=== PATIENT | female | born 1990 | race African-American/Black ===

== ENCOUNTER 2021-07-20 22:36 | Inpatient (IN) | payer MEDICAID, SELFPAY ==
--- NOTE | ~2021-07-20 | CT_ITS ---
EXAMINATION: CT ABDOMEN AND PELVIS WITH CONTRAST CLINICAL INFORMATION: Right lower quadrant pain. COMPARISON: None TECHNIQUE: Multidetector volumetric images were obtained from the superior aspect of the liver through the pubic symphysis following administration 85 mL of Omnipaque 350 intravenous contrast. Sagittal and coronal reformatted images were obtained on the technologist's workstation. Oral contrast: No This CT examination was performed using dose optimization techniques as appropriate, variously including the following: *Automated exposure control *Adjustment of mA and/or kV according to patient size (this includes techniques or standardized protocols for targeted exams where dose is matched to indication/reason for exam; i.e. extremities or head) *Use of iterative reconstruction technique DLP: 918 mGy-cm FINDINGS: LUNG BASES: The visualized lung bases are unremarkable. LIVER, GALLBLADDER, AND BILIARY TREE: The liver is normal in size, shape, and attenuation. No focal hepatic lesion or biliary ductal dilatation is present. Mild periportal edema. Normally distended. Gallbladder wall thickening noted. No radiopaque stone. PANCREAS: Unremarkable. SPLEEN: Unremarkable. ADRENAL GLANDS: Unremarkable. KIDNEYS AND URETERS: The kidneys are normal in size, shape, and attenuation. Mild right hydroureteronephrosis. No obstructing calculus is seen. There is a left upper pole 0.3 cm calculus which is 6 cm from the posterior axillary line. This is likely within a calyceal diverticulum. The delayed imaging shows symmetric excretion. No filling defects are seen in the collecting systems or ureters. BLADDER: Unremarkable. GASTROINTESTINAL TRACT: The small and large bowel are unremarkable. The appendix is unremarkable. ABDOMINAL WALL: No significant hernia is appreciated. LYMPH NODES: Normal. VASCULAR: Unremarkable. PELVIC VISCERA: Retroverted uterus. No adnexal mass. OSSEOUS STRUCTURES: No acute osseous abnormality. CT/CT abdomen pelvis w con IMPRESSION: 1. Gallbladder wall thickening noted. No gallstones are seen. Likely mild periportal edema. Consider ultrasound evaluation. 2. Mild right hydroureteronephrosis. No obstructing calculus is seen. Fleischner guidelines were followed.
--- NOTE | ~2021-07-20 | US_ITS ---
EXAMINATION: US ABDOMEN LIMITED CLINICAL INFORMATION: Right-sided pain. Abnormal CT .. COMPARISON: CT from today TECHNIQUE: Real-time imaging of the gallbladder and common bile duct. FINDINGS: GALLBLADDER: The gallbladder is physiologically distended without evidence of stones, sludge, polyps, or pericholecystic fluid. Gallbladder wall thickening of 0.4 cm . COMMON BILE DUCT: Normal in caliber measuring 0.2 cm in diameter. FREE FLUID: None. US/US abdomen limited IMPRESSION: Mild gallbladder wall thickening measuring 0.4 cm . No stones or other inflammatory findings.
[2021-07-20 23:18] VITALS: BP 128/83; PULSE 96; RESP 16; TEMP 36.7; O2SAT 100; BMI 23.0
[2021-07-20 23:36] LABS: Color Urine YELLOW; Glucose Urine UA NEG (NEG); Leukocyte Esterase Urine NEG (NEG); Nitrite Urine NEG (NEG); Specific Gravity - Urine >= 1.030 (1.005-1.025); Urine Blood NEG (NEG); Urine Ketones NEG (NEG); Urine Protein NEG (NEG-TRACE)
[2021-07-20 23:38] LABS: Appearance Urine CLEAR; UPreg QC Valid YES; Urine Pregnancy NEGATIVE (NEGATIVE)
--- NOTE | 2021-07-20 23:57 | ED.ABDPAIN ---
HPI - Abdominal Pain General Chief Complaint: Abdominal Pain Stated Complaint: abd pain Time Seen by Provider: 07/20/21 23:57 Source: patient Mode of arrival: ambulatory Limitations: language barrier History of Present Illness HPI narrative: Patient with no significant past medical history noticed sudden onset of lower abdominal pain more localized to right lower quadrant radiating to lower abdomen and right back denied any urinary complaints no fever no chills no nausea no vomiting pain gets worse on ambulation patient never had similar pain in the past no history of ovarian cyst Related Data Allergies Allergy/AdvReac Type Severity Reaction Status Date / Time No Known Allergies Allergy Verified 07/20/21 23:22 [No Known Allergies*] Review of Systems Review of Systems Yes all other systems are reviewed and are negative Physical Exam Vital Signs: Vital Signs: Last Vital Signs Temp 98.1 F 07/20/21 23:18 Pulse 96 07/20/21 23:18 Resp 16 07/20/21 23:18 BP 128/83 07/20/21 23:18 Pulse Ox 100 07/20/21 23:18 BMI result Body Mass Index 23.0 Appearance: Alert. Oriented X3. In moderate distress. Eyes: No pallor or icterus ENT: Pharynx normal. Oral Mucosa moist Neck: Normal inspection. Neck supple. CVS: Normal heart rate and rhythm. Pulses normal. Respiratory: No respiratory distress. Equal air entry bilateral, no wheezing/rales/rhonchi Abdomen: Soft , deep tenderness right lower quadrant no rebound tenderness or guarding Bowel sounds are present, no mass palpable, no CVA tenderness mild tenderness right upper quadrant Skin: Skin warm and dry. Normal skin color. Normal skin turgor. Extremities: No lower extremity edema. No calf tenderness Neuro: Oriented X 3. MDM - Abdominal Pain MDM Narrative Medical decision making narrative: Patient's right-sided pain mostly right lower slight right upper quadrant pain CT scan negative for kidney stone or appendicitis showed thickening of gallbladder will do ultrasound to rule out cholecystitis LFTs are normal Differential Diagnosis Differential diagnosis: Likely abdominal pain Lab Data Result diagrams: 07/21/21 00:11 07/21/21 00:11 Labs: Lab Results 07/20/21 07/20/21 07/21/21 Range/Units 23:28 23:28 00:11 WBC 13.5 H (4.8-10.8) X10*3/uL RBC 4.15 L (4.20-5.50) X10*6/uL Hgb 12.1 (12.0-16.0) g/dl Hct 37.1 (37.0-47.0) % MCV 89.4 (80.0-98.0) fL MCH 29.2 (27.0-33.0) pg MCHC 32.6 (31.0-35.0) g/dl RDW 12.9 (11.0-16.0) % Plt Count 231 (160-400) X10*3/uL MPV 11.2 (9.4-12.3) fL Immature Gran % (Auto) 0.6 H (0.0-0.4) % Neut % (Auto) 81.2 H (45-73) % Lymph % (Auto) 11.5 L (20-40) % Rankin % (Auto) 5.8 (2-11) % Eos % (Auto) 0.6 (0-4) % Baso % (Auto) 0.3 (0-2) % Lymph # (Auto) 1.6 (1.2-4.9) X10*3/uL [place] # (Auto) 0.8 (0.1-1.2) X10*3/uL Eos # (Auto) 0.1 (0.0-0.4) X10*3/uL Baso # (Auto) 0.0 (0.0-0.2) X10*3/uL Abs Immat Gran (auto) 0.08 H (0.00-0.03) X10*3/uL Absolute Neuts (auto) 11.0 H (2.0-8.3) x10*3/uL Absolute Nucleated RBC 0.000 (0.0-0.012) X10*3/uL Nucleated RBC % (auto) 0.0 (0.0-0.2) /100WBC Sodium (135-145) mmol/L Potassium (3.3-5.1) mmol/L Chloride (96-108) mmol/L Carbon Dioxide (22-29) mmol/L Anion Gap (12-20) BUN (9-16) mg/dL Creatinine (0.5-1.4) mg/dL Estim Creat Clear Calc Estimated GFR Random Glucose (60-115) mg/dL Calcium (8.4-10.2) mg/dL Total Bilirubin (0.0-1.0) mg/dL AST (5-31) U/L ALT (0-31) U/L Alkaline Phosphatase (39-117) U/L Total Protein (6.5-8.0) g/dL Albumin (3.5-5.0) g/dL Lipase (8-78) U/L Urine Color YELLOW Urine Appearance CLEAR Urine pH 6.0 (5.0-8.0) Ur Specific [place] >= 1.030 H (1.005-1.025) Urine Protein NEG (NEG-TRACE) MG/DL Urine Glucose (UA) NEG (NEG) MG/DL Urine Ketones NEG (NEG) MG/DL Urine Blood NEG (NEG) Urine Nitrite NEG (NEG) Ur Leukocyte Esterase NEG (NEG) Urine Test NEGATIVE (NEGATIVE) 07/21/21 Range/Units 00:11 WBC (4.8-10.8) X10*3/uL RBC (4.20-5.50) X10*6/uL Hgb (12.0-16.0) g/dl Hct (37.0-47.0) % MCV (80.0-98.0) fL MCH (27.0-33.0) pg MCHC (31.0-35.0) g/dl RDW (11.0-16.0) % Plt Count (160-400) X10*3/uL MPV (9.4-12.3) fL Immature Gran % (Auto) (0.0-0.4) % Neut % (Auto) (45-73) % Lymph % (Auto) (20-40) % Rankin % (Auto) (2-11) % Eos % (Auto) (0-4) % Baso % (Auto) (0-2) % Lymph # (Auto) (1.2-4.9) X10*3/uL [place] # (Auto) (0.1-1.2) X10*3/uL Eos # (Auto) (0.0-0.4) X10*3/uL Baso # (Auto) (0.0-0.2) X10*3/uL Abs Immat Gran (auto) (0.00-0.03) X10*3/uL Absolute Neuts (auto) (2.0-8.3) x10*3/uL Absolute Nucleated RBC (0.0-0.012) X10*3/uL Nucleated RBC % (auto) (0.0-0.2) /100WBC Sodium 136 (135-145) mmol/L Potassium 3.9 (3.3-5.1) mmol/L Chloride 103 (96-108) mmol/L Carbon Dioxide 25 (22-29) mmol/L Anion Gap 12 (12-20) BUN 19 H (9-16) mg/dL Creatinine 0.83 (0.5-1.4) mg/dL Estim Creat Clear Calc 81.2 Estimated GFR > 60 Random Glucose 113 (60-115) mg/dL Calcium 9.4 (8.4-10.2) mg/dL Total Bilirubin 0.4 (0.0-1.0) mg/dL AST 178 H (5-31) U/L ALT 133 H (0-31) U/L Alkaline Phosphatase 109 (39-117) U/L Total Protein 7.6 (6.5-8.0) g/dL Albumin 4.2 (3.5-5.0) g/dL Lipase 20 (8-78) U/L Urine Color Urine Appearance Urine pH (5.0-8.0) Ur Specific [place] (1.005-1.025) Urine Protein (NEG-TRACE) MG/DL Urine Glucose (UA) (NEG) MG/DL Urine Ketones (NEG) MG/DL Urine Blood (NEG) Urine Nitrite (NEG) Ur Leukocyte Esterase (NEG) Urine Test (NEGATIVE) Imaging Data CT scan - abdomen: Radiologist's impression: CT/CT abdomen pelvis w con IMPRESSION: ? 1. Gallbladder wall thickening noted. No gallstones are seen. Likely mild periportal edema. Consider ultrasound evaluation. 2. Mild right hydroureteronephrosis. No obstructing calculus is seen.? ? Fleischner guidelines were followed. Discharge Plan Discharge Clinical Impression: Abdominal pain Qualifiers: Abdominal location: right lower quadrant Qualified Code(s): R10.31 - Right lower quadrant pain PMFSH Social History Social History Advance Directives: No Patient : No
[2021-07-21] VITALS (7 sets, daily range): BP systolic 94–110; BP diastolic 57–68; PULSE 71–80; RESP 14–18; TEMP 36.3–36.9; O2SAT 97–100
[2021-07-21 00:23] LABS: MANUAL DIFF FLAG NO
[2021-07-21] MEDS: Morphine Sulfate 4 MG/ML CARTRIDGE IVPUSH (00:23)
[2021-07-21] MEDS: ondansetron HCL 4 MG/2 ML VIAL IVPUSH (00:23)
[2021-07-21] MEDS: 0.9 % Sodium Chloride 1,000 ML 999 ML IVCONT (00:23)
[2021-07-21 00:26] LABS: Basophils Percent Auto 0.3 % (0-2); Eosinophils Absolute Auto 0.1 X10*3/uL (0.0-0.4); Eosinophils Percent Auto 0.6 % (0-4); Hematocrit 37.1 % (37.0-47.0); Hemoglobin 12.1 g/dl (12.0-16.0); Imm Gran Abs Auto 0.08 X10*3/uL (0.00-0.03); Imm Gran Pct Auto 0.6 % (0.0-0.4); Lymphocytes Absolute Auto 1.6 X10*3/uL (1.2-4.9); Lymphocytes Percent Auto 11.5 % (20-40); Mean Corpuscular HGB Conc 32.6 g/dl (31.0-35.0); Mean Corpuscular Hemoglobin 29.2 pg (27.0-33.0); Mean Corpuscular Volume 89.4 fL (80.0-98.0); Mean Platelet Volume 11.2 fL (9.4-12.3); Monocytes Absolute Auto 0.8 X10*3/uL (0.1-1.2); Monocytes Percent Auto 5.8 % (2-11); Neutrophils Percent Auto 81.2 % (45-73); Platelet Count 231 X10*3/uL (160-400); Red Blood Count 4.15 X10*6/uL (4.20-5.50); Red Cell Distribution Width 12.9 % (11.0-16.0); White Blood Count 13.5 X10*3/uL (4.8-10.8)
[2021-07-21 00:58] LABS: Alanine Aminotransferase 133 U/L (0-31); Albumin Level 4.2 g/dL (3.5-5.0); Alkaline Phosphatase 109 U/L (39-117); Anion Gap 12 (12-20); Aspartate Amino Transferase 178 U/L (5-31); Bilirubin Total 0.4 mg/dL (0.0-1.0); Blood Urea Nitrogen 19 mg/dL (9-16); Calcium 9.4 mg/dL (8.4-10.2); Carbon Dioxide 25 mmol/L (22-29); Chloride 103 mmol/L (96-108); Creatinine Clr Calc Pharmacy 81.2; Estimated Glomerular Filt Rate > 60; Glucose Random 113 mg/dL (60-115); Lipase 20 U/L (8-78); Potassium 3.9 mmol/L (3.3-5.1); Sodium 136 mmol/L (135-145); Total Protein 7.6 g/dL (6.5-8.0)
[2021-07-21] MEDS: iohexoL 350 MG/ML 100 ML INFUS..BTL 85 ML IV (01:29)
[2021-07-21] MEDS: Ketorolac Tromethamine 30 MG/ML VIAL IVPUSH (02:25)
[2021-07-21] MEDS: Ketorolac Tromethamine 30 MG/ML VIAL 15 MG IVPUSH (04:05)
[2021-07-21] MEDS: Piperacillin Sodium/Tazobactam 3.375 GM in 0.9 % Sodium Chloride 50 ML IV ×4 (05:31→23:25)
[2021-07-21 05:47] LABS: COVID-19 Test Negative (Negative); IDNOW Serial# 9DD0AD1C
[2021-07-21] MEDS: Dextrose 5 % and Lactated Ring 1,000 ML 125 ML IVCONT ×2 (05:55→15:27)
[2021-07-21] MEDS: HYDROmorphone HCl 0.5 MG/0.5 ML SYRINGE IVPUSH (08:38)
--- NOTE | 2021-07-21 08:46 | MHC.CM.PN ---
pt lives alone in her apt. she reports that she is independent in her care. she works a job and drives a car. she has no svcs at home and does not use any AD c ambulation. pt does have family that live in the area and can help her if she needs it. the patient will have her mother provide transportation home at dc. pt denies the need for vna . dc plan is home no svcs. cm to cont. to follow.
--- NOTE | 2021-07-21 09:32 | PHA.MEDREC ---
Pharmacy Consult ? Medication Reconciliation Pharmacy has completed the medication reconciliation. No remarkable issues. Radha Avila RP
--- NOTE | 2021-07-21 10:03 | PM.HPGS ---
History of Present Illness History of Present Illness Date of Service: 07/23/21 Chief complaint: Acalculous cholecystitis Narrative: Rodolfo Ly is a 31 year old female admitted because of abdominal pain. She came the ED last night because of what she described as pain on the right upper quadrant, right flank as well as the right lower quadrant and eventually involving the whole abdomen. She says this was constant throughout the night. She denies any nausea or vomiting. She states that her pain has improved significantly and has minimal pain this morning. She denies having similar episodes in the past. Review of Systems Constitutional: Constitutional: Denies chills and Denies fever(s) Cardiovascular: Cardiovascular: Denies chest pain, Denies dyspnea and Denies dyspnea on exertion Respiratory: Respiratory: Denies cough, Denies dyspnea and Denies dyspnea on exertion Gastrointestinal: Gastrointestinal: Denies hematochezia and Denies change in bowel habits Genitourinary: Genitourinary: Denies hematuria Musculoskeletal: Musculoskeletal: Denies back pain and Denies limited range of motion Neurologic: Denies focal weakness and Denies convulsions Psychiatric: Psychiatric: Denies depression and Denies mood swings [facility] Social History Social History Household Members: Children Housing: Apartment Do you presently have visiting nurse or other home services: No Patient Tobacco Use Status: Never used Tobacco service: No Current occupational status: employed Meds Allergies Allergy/AdvReac Type Severity Reaction Status Date / Time No Known Allergies Allergy Verified 07/20/21 23:22 [No Known Allergies*] Active Medications: Current Medications Acetaminophen (Acetaminophen 325 Mg Tablet) 650 mg PO QID PRN PRN Reason: headache, temp > 101 Hydromorphone HCl (Hydromorphone Hcl 0.5 Mg/0.5 Ml Syringe) 0.5 mg IVPUSH Q2H PRN; Protocol PRN Reason: Pain, Severe (Pain Scale 7-10) Last Admin: 07/21/21 08:38 Dose: 0.5 mg Documented by: Dextrose/Lactated Ringer's (D5lr) 1,000 mls @ 125 mls/hr IVCONT .Q8H [facility] Last Admin: 07/21/21 05:55 Dose: 125 mls/hr Documented by: Piperacillin Sod/Tazobactam (Sod 3.375 gm/ Sodium Chloride) 50 mls @ 100 mls/hr IV Q6H [facility] Ondansetron HCl (Ondansetron Hcl 4 Mg/2 Ml Vial) 4 mg IVPUSH QID PRN PRN Reason: Nausea Oxycodone HCl (Oxycodone Hcl Immed Release 5 Mg Tablet) 5 mg PO Q6H PRN PRN Reason: Pain, Moderate (Pain Scale 4-6 Pharmacy Consult (Consult Rx Perform Med Rec) 1 each MISCELLANE ONCE PRN PRN Reason: Consult order Sodium Chloride (0.9 % Sodium Chloride Flush 3 Ml Syringe) 3 ml IVFLUSH QSHIFT [facility] Last Admin: 07/21/21 07:53 Dose: Not Given Documented by: Zolpidem Tartrate (Zolpidem Tartrate 5 Mg Tablet) 5 mg PO BEDTIME PRN PRN Reason: Insomnia Physical Exam Vital Signs: Vital Signs: Last Vital Signs Temp 98.4 F 07/21/21 03:41 Pulse 71 07/21/21 08:33 Resp 16 07/21/21 07:09 BP 98/67 07/21/21 08:33 Pulse Ox 97 07/21/21 08:33 BMI result Body Mass Index 23.0 Const: General: comfortable and no acute distress Orientation/consciousness: patient oriented x3 Neck: Neck: Yes no lymphadenopathy Resp: Auscultation: clear to auscultation bilaterally Cardio: Rhythm: regular rhythm GI: Other: Minimal tenderness on the right lower quadrant with no guarding or rebound, no Boogie sign, no significant tenderness on the right upper quadrant or right flank at this time Palpation (GI): Soft to palpation, nontender and no guarding Neuro: General: patient oriented x3 Results Results Labs: Short CBC 07/21/21 Range/Units 00:11 WBC 13.5 H (4.8-10.8) X10*3/uL Hgb 12.1 (12.0-16.0) g/dl Hct 37.1 (37.0-47.0) % Plt Count 231 (160-400) X10*3/uL BMP 07/21/21 00:11 Sodium 136 Potassium 3.9 Chloride 103 Carbon Dioxide 25 BUN 19 H Creatinine 0.83 Calcium 9.4 Liver Function 07/21/21 Range/Units 00:11 Total Bilirubin 0.4 (0.0-1.0) mg/dL AST 178 H (5-31) U/L ALT 133 H (0-31) U/L Alkaline Phosphatase 109 (39-117) U/L Albumin 4.2 (3.5-5.0) g/dL Urine 07/20/21 07/20/21 Range/Units 23:28 23:28 Urine Color YELLOW Urine Appearance CLEAR Urine pH 6.0 (5.0-8.0) Ur Specific [place] >= 1.030 H (1.005-1.025) Urine Protein NEG (NEG-TRACE) MG/DL Urine Glucose (UA) NEG (NEG) MG/DL Urine Test NEGATIVE (NEGATIVE) Abdomen CT scan report/results: report reviewed and image reviewed CT scan - pelvis: report reviewed and image reviewed Assessment and Plan (1) Abdominal pain: Qualifiers: Abdominal location: right lower quadrant Qualified Code(s): R10.31 - Right lower quadrant pain Status: Acute She presented with abdominal pain last night mostly on the right side, which has improved significantly. Current exam shows mild tenderness right lower quadrant. I have reviewed her being studies and there is some question of gallbladder wall thickening although there are no other inflammatory changes and there are no gallstones. She is therefore being admitted for possible acalculous cholecystitis. She has leukocytosis but otherwise has no fever and appears well at this time. I did explain to her the option of proceeding with laparoscopic cholecystectomy. I discussed the technique of this procedure as well as the risks, benefits, and alternatives. She has minimal pain at this time and states that she is okay with proceeding with nonoperative treatment in observation. She expressed desire to be able to be discharged as soon as possible because of [place]. I will keep her in the hospital for IV fluids and clear liquids as well as antibiotics. I will repeat her CBC tomorrow. She has a very benign and unimpressive exam at this time otherwise. Quality Stroke Does the patient have a stroke diagnosis?: No VTE Prior VTE?: No VTE Risk Level:: Surgical - low VTE Device Contraindication: N/A - Device Ordered VTE Drug Contraindication: Treatment Not Indicated Procedures Date of Service Date of Service: 07/21/21
--- NOTE | 2021-07-21 13:56 | PM.EVENT ---
Event Note Date of Service: 07/21/21 Event Note: seen on ffup rounds says she feels well denies abdl pain abd soft stable VS no fever repeat CBC tomorrow possible discharge tomorrow pt says she hopes to spend [place] day with family
--- NOTE | 2021-07-21 18:54 | PC.NURSE ---
Report given to RN by Keila ANNE. Plan for transport to floor.
[2021-07-21] MEDS: 0.9 % Sodium Chloride Flush 3 ML SYRINGE IVFLUSH (23:27)
[2021-07-22] VITALS: BP 104/61; PULSE 81; RESP 17; TEMP 36.6; O2SAT 99
[2021-07-22] MEDS: Dextrose 5 % and Lactated Ring 1,000 ML 125 ML IVCONT ×3 (00:01→12:15)
[2021-07-22 03:52] VITALS: BP 98/53; PULSE 79; RESP 17; TEMP 36.3; O2SAT 100
[2021-07-22] MEDS: Piperacillin Sodium/Tazobactam 3.375 GM in 0.9 % Sodium Chloride 50 ML IV ×2 (05:21→12:15)
[2021-07-22 07:00] LABS: MANUAL DIFF FLAG NO
[2021-07-22 07:13] LABS: Hematocrit 34.1 % (37.0-47.0); Hemoglobin 10.9 g/dl (12.0-16.0); Mean Corpuscular Hemoglobin 28.8 pg (27.0-33.0); Mean Platelet Volume 11.3 fL (9.4-12.3); Platelet Count 201 X10*3/uL (160-400); Red Blood Count 3.79 X10*6/uL (4.20-5.50); Red Cell Distribution Width 13.2 % (11.0-16.0); White Blood Count 5.4 X10*3/uL (4.8-10.8)
[2021-07-22 07:18] LABS: Basophils Percent Auto 0.7 % (0-2); Eosinophils Absolute Auto 0.3 X10*3/uL (0.0-0.4); Eosinophils Percent Auto 5.4 % (0-4); Hematocrit 34.1 % (37.0-47.0); Hemoglobin 10.9 g/dl (12.0-16.0); Imm Gran Abs Auto 0.01 X10*3/uL (0.00-0.03); Imm Gran Pct Auto 0.2 % (0.0-0.4); Lymphocytes Absolute Auto 2.1 X10*3/uL (1.2-4.9); Lymphocytes Percent Auto 38.2 % (20-40); Mean Corpuscular Hemoglobin 28.6 pg (27.0-33.0); Mean Corpuscular Volume 89.5 fL (80.0-98.0); Mean Platelet Volume 11.6 fL (9.4-12.3); Monocytes Absolute Auto 0.5 X10*3/uL (0.1-1.2); Monocytes Percent Auto 8.1 % (2-11); Neutrophils Absolute Auto 2.6 x10*3/uL (2.0-8.3); Neutrophils Percent Auto 47.4 % (45-73); Platelet Count 203 X10*3/uL (160-400); Red Blood Count 3.81 X10*6/uL (4.20-5.50); Red Cell Distribution Width 13.2 % (11.0-16.0); White Blood Count 5.5 X10*3/uL (4.8-10.8)
[2021-07-22 07:45] LABS: Alanine Aminotransferase 177 U/L (0-31); Albumin Level 3.4 g/dL (3.5-5.0); Alkaline Phosphatase 86 U/L (39-117); Anion Gap 10 (12-20); Aspartate Amino Transferase 105 U/L (5-31); Bilirubin Direct 0.4 mg/dL (0.0-0.5); Bilirubin Total 0.8 mg/dL (0.0-1.0); Blood Urea Nitrogen 6 mg/dL (9-16); Calcium 8.7 mg/dL (8.4-10.2); Carbon Dioxide 27 mmol/L (22-29); Chloride 107 mmol/L (96-108); Creatinine Clr Calc Pharmacy 82.2; Estimated Glomerular Filt Rate > 60; Glucose Random 100 mg/dL (60-115); Potassium 3.8 mmol/L (3.3-5.1); Sodium 140 mmol/L (135-145); Total Protein 6.1 g/dL (6.5-8.0)
[2021-07-22 07:55] VITALS: BP 115/69; PULSE 80; RESP 16; TEMP 36.5; O2SAT 100
--- NOTE | 2021-07-22 10:33 | PM.PNGS ---
Subjective Subjective Date of Service: 07/22/21 Interval history: Denies abdominal pain No events reported overnight Tolerating liquids Says she wants to go home Physical Exam Vital Signs: Vital Signs: Last Vital Signs Temp 97.7 F 07/22/21 07:55 Pulse 80 07/22/21 07:55 Resp 16 07/22/21 07:55 BP 115/69 07/22/21 07:55 Pulse Ox 100 07/22/21 07:55 BMI result Body Mass Index 23.0 Const: General: comfortable and no acute distress Eyes: Sclerae: sclerae normal Resp: Effort & Inspection: normal respiratory effort Cardio: Rate: regular rate GI: Other: No Boogie's sign Palpation (GI): Soft to palpation, not firm, nontender and no guarding Objective Data Active Medications Acetaminophen (Acetaminophen 325 Mg Tablet) 650 mg PO QID PRN PRN Reason: headache, temp > 101 Hydromorphone HCl (Hydromorphone Hcl 0.5 Mg/0.5 Ml Syringe) 0.5 mg IVPUSH Q2H PRN; Protocol PRN Reason: Pain, Severe (Pain Scale 7-10) Last Admin: 07/21/21 08:38 Dose: 0.5 mg Documented by: ROGER Dextrose/Lactated Ringer's (D5lr) 1,000 mls @ 125 mls/hr IVCONT .Q8H [facility] Last Admin: 07/22/21 05:53 Dose: 125 mls/hr Documented by: SARAH Piperacillin Sod/Tazobactam (Sod 3.375 gm/ Sodium Chloride) 50 mls @ 100 mls/hr IV Q6H [facility] Last Infusion: 07/22/21 05:53 Dose: 0 mls/hr Documented by: SARAH Ondansetron HCl (Ondansetron Hcl 4 Mg/2 Ml Vial) 4 mg IVPUSH QID PRN PRN Reason: Nausea Oxycodone HCl (Oxycodone Hcl Immed Release 5 Mg Tablet) 5 mg PO Q6H PRN PRN Reason: Pain, Moderate (Pain Scale 4-6 Pharmacy Consult (Consult Rx Perform Med Rec) 1 each MISCELLANE ONCE PRN PRN Reason: Consult order Sodium Chloride (0.9 % Sodium Chloride Flush 3 Ml Syringe) [facility] Last Admin: 07/22/21 08:14 Dose: Not Given Documented by: TYRA Non-Admin Reason: IV Running Zolpidem Tartrate (Zolpidem Tartrate 5 Mg Tablet) 5 mg PO BEDTIME PRN PRN Reason: Insomnia Labs CBC & Chem 7: 07/22/21 06:10 07/22/21 06:10 Labs: Laboratory Results - last 24 hr 07/22/21 07/22/21 07/22/21 06:10 06:10 06:10 MCV 90.0 89.5 MCH 28.8 28.6 MCHC 32.0 32.0 RDW 13.2 13.2 Plt Count 201 203 MPV 11.3 11.6 Immature Gran % (Auto) 0.2 Neut % (Auto) 47.4 Lymph % (Auto) 38.2 [place] % (Auto) 8.1 Eos % (Auto) 5.4 H Baso % (Auto) 0.7 Lymph # (Auto) 2.1 [place] # (Auto) 0.5 Eos # (Auto) 0.3 Baso # (Auto) 0.0 Abs Immat Gran (auto) 0.01 Absolute Neuts (auto) 2.6 Absolute Nucleated RBC 0.000 0.000 Nucleated RBC % (auto) 0.0 0.0 Anion Gap 10 L Estim Creat Clear Calc 82.2 Estimated GFR > 60 Random Glucose 100 Calcium 8.7 D Total Bilirubin 0.8 Direct Bilirubin 0.4 AST 105 H ALT 177 H Alkaline Phosphatase 86 D Total Protein 6.1 L Albumin 3.4 L Procedures Date of Service Date of Service: 07/22/21 Progress Note: A&P Assessment and plan (1) Abdominal pain: Status: Acute Assessment and Plan: Question of acalculous cholecystitis on CT scan No gallstones She has been asymptomatic since yesterday Current exam unremarkable, no tenderness Labs today - no leukocytosis mildly elevated AST ALT Patient wants to go home Okay to DC home once tolerating diet Follow-up with primary care physician Fall Risk Details Current Medications: Current Medications Acetaminophen (Acetaminophen 325 Mg Tablet) 650 mg PO QID PRN PRN Reason: headache, temp > 101 Hydromorphone HCl (Hydromorphone Hcl 0.5 Mg/0.5 Ml Syringe) 0.5 mg IVPUSH Q2H PRN; Protocol PRN Reason: Pain, Severe (Pain Scale 7-10) Last Admin: 07/21/21 08:38 Dose: 0.5 mg Documented by: Dextrose/Lactated Ringer's (D5lr) 1,000 mls @ 125 mls/hr IVCONT .Q8H [facility] Last Admin: 07/22/21 05:53 Dose: 125 mls/hr Documented by: Piperacillin Sod/Tazobactam (Sod 3.375 gm/ Sodium Chloride) 50 mls @ 100 mls/hr IV Q6H [facility] Last Infusion: 07/22/21 05:53 Dose: Infused Documented by: Ondansetron HCl (Ondansetron Hcl 4 Mg/2 Ml Vial) 4 mg IVPUSH QID PRN PRN Reason: Nausea Oxycodone HCl (Oxycodone Hcl Immed Release 5 Mg Tablet) 5 mg PO Q6H PRN PRN Reason: Pain, Moderate (Pain Scale 4-6 Pharmacy Consult (Consult Rx Perform Med Rec) 1 each MISCELLANE ONCE PRN PRN Reason: Consult order Sodium Chloride (0.9 % Sodium Chloride Flush 3 Ml Syringe) 3 ml IVFLUSH QSHIFT [facility] Last Admin: 07/22/21 08:14 Dose: Not Given Documented by: Zolpidem Tartrate (Zolpidem Tartrate 5 Mg Tablet) 5 mg PO BEDTIME PRN PRN Reason: Insomnia Time Spent With Patient Time: Total time spent is greater than 50% in coordination of care (as documented) at patient's floor/unit and/or counseling patient: Time with patient: 15 - 24 minutes Quality Stroke Does the patient have a stroke diagnosis?: No VTE Prior VTE?: No VTE Risk Level:: Surgical - low VTE Device Contraindication: N/A - Device Ordered VTE Drug Contraindication: Treatment Not Indicated
[2021-07-22 11:35] VITALS: BP 110/67; PULSE 76; RESP 16; TEMP 37; O2SAT 99
--- NOTE | 2021-07-22 11:47 | MHC.CM.PN ---
EMR REVIEWED, PER SURGICAL ANTIC PT WILL D/C HOME SELF-CARE IF TOLERATING REGULAR DIET, FAMILY FOR TRANSPORT.
[2021-07-22] MEDS: Acetaminophen 325 MG TABLET 650 MG PO (12:14)
--- NOTE | 2021-07-23 10:51 | PM.DS ---
DS: Providers Provider Date of Service: 07/22/21 Date of admission: 07/21/21 05:14 Date of discharge: 07/22/21 Primary care physician: Denita Jacksno NP Admitting clinician: Yefri Dumas Attending physician on admission: Yefri Dumas Attending physician on discharge: Yefri Dumas DS: Diagnosis Discharge Diagnosis (1) Abdominal pain: Status: Acute DS: Summary Hospital Course Hospital Course: The patient was a 31-year-old female who had an episode of abdominal pain described as mostly right side a few hours prior to admission. She came to the emergency room. Her CAT scan suggested some mild thickening of the gallbladder wall without any pericholecystic fluid or another inflammatory changes. Her imaging studies did not show any gallstones. She did have some mild leukocytosis at 13, she was admitted for possible acalculous cholecystitis. Her pain had improved significantly in the ER. Physical exam did not reveal any significant tenderness. I admitted her for IV fluids and antibiotics. I did explain to her the option of proceeding with cholecystectomy which she stated that she felt better and did not want to proceed. Her leukocytosis improved on her 1st postop day. She did not have any further abdominal pain or tenderness on examination. She tolerated regular food and was therefore discharged on 07/22/2021. Time spent discussing smoking cessation with patient: 3 to 10 minutes Status at Discharge Functional status at discharge: independent ambulation Time Spent with Patient Time attestation: Total time spent providing and/or coordinating discharge services: Discharge coordination time: Less than 30 minutes Quality: Stroke Does the patient have a stroke diagnosis?: No Physical Exam Vital Signs: Vital Signs: Last Vital Signs Temp 98.6 F 07/22/21 11:35 Pulse 76 07/22/21 11:35 Resp 16 07/22/21 11:35 BP 110/67 07/22/21 11:35 Pulse Ox 99 07/22/21 11:35 BMI result Body Mass Index 23.0 Const: General: comfortable and no acute distress Orientation/consciousness: patient oriented x3 Neck: Neck: Yes no lymphadenopathy Resp: Auscultation: clear to auscultation bilaterally Cardio: Rhythm: regular rhythm GI: Palpation (GI): Soft to palpation, nontender and no guarding Neuro: General: patient oriented x3 DS: Data Data Completed and Pending Labs on day of discharge: Chemistry 07/21/21 07/22/21 00:11 06:10 Sodium 136 140 Potassium 3.9 3.8 Carbon Dioxide 25 27 BUN 19 H 6 L D Creatinine 0.83 0.82 Calcium 9.4 8.7 D Hematology 07/21/21 07/22/21 07/22/21 00:11 06:10 06:10 WBC 13.5 H 5.4 5.5 Hgb 12.1 10.9 L 10.9 L Plt Count 231 201 203 Urinalysis 07/20/21 23:28 Urine Color YELLOW Urine Appearance CLEAR Urine pH 6.0 Ur Specific [place] >= 1.030 H Urine Protein NEG Urine Glucose (UA) NEG Urine Ketones NEG Urine Blood NEG Urine Nitrite NEG Ur Leukocyte Esterase NEG Discharge Plan Discharge Patient Disposition: Home, Self-Care Discharge Diagnosis: abdominal pain Referrals: Denita Kearns NP [Primary Care Provider] - 1 Week Discharge Orders: Discharge Order (Routine); Ordered 07/22/21 Ordered By: Yefri Dumas Activity on Discharge: As tolerated Stand Alone Forms: Patient Portal Discharge page Activity Restrictions/Additional Instructions: Diet as tolerated Follow-up with primary care physician Care Plan Goals: Monitor abdominal pain Health Concerns: Abdominal pain, question of acalculous cholecystitis Plan of Treatment: Follow-up with her care physician Diet as tolerated Assessment: Doing well and is completely asymptomatic Discharge Date/Time: 07/22/21 15:38
== END 2021-07-22 15:38 | disposition home or self-care (01) ==
LOC: HO.ED 07-21 00:39 → HO.EDOVER 07-21 05:28 → HO.S3 07-21 17:50
PROVIDERS: Surgery; Admitting Provider Surgery; Emergency Provider Internal Medicine; PCP Registered Nurse; Visit Provider Surgery
DX: K81.9 Cholecystitis, unspecified (principal); Z20.822 Contact with and (suspected) exposure to COVID-19; Z79.899 Other long term (current) drug therapy
CPT/HCPCS: 36415; 74177; 76705; 80048; 80053; 80076; 81003; 81025; 83690; 85025; 85027; 87635; 99218; 99285; J1170; J1885; J2270; J2405; J2543; Q9967

== ENCOUNTER 2021-07-23 14:15 | Emergency (ER) | payer MEDICAID, SELFPAY ==
[2021-07-23 17:56] VITALS: BP 125/84; PULSE 86; RESP 18; TEMP 36.9; O2SAT 100; BMI 22.6
== END 2021-07-24 01:57 | disposition left against medical advice (07) ==
PROVIDERS: Emergency Provider Emergency Medicine; PCP Registered Nurse
DX: R10.9 Unspecified abdominal pain (principal)
CPT/HCPCS: 99282; 99283

== ENCOUNTER 2021-07-24 10:05 | Inpatient (IN) | payer MEDICAID, SELFPAY ==
--- NOTE | ~2021-07-24 | NM_ITS ---
EXAMINATION: NUCLEAR MEDICINE HEPATOBILIARY SCAN CLINICAL INFORMATION: Possible acalculus cholecystitis. COMPARISON: Ultrasound of abdomen 07/21/2021. CT scan abdomen pelvis 07/21/2021. TECHNIQUE: 5 mCi of technetium 99m mebrofenin was injected intravenously. Images obtained over the right upper quadrant initially through 90 minutes. Ensure was then administered orally at 90 minutes. Subsequent images obtained through 60 minutes. FINDINGS: The initial part of the study demonstrates the isotope being taken up by the liver and excreted normally into the CBD with activity flowing into the bowel. There is activity flowing into the gallbladder through this portion of exam consistent with a patent cystic duct. After the administration of a ensure there is no significant emptying of the gallbladder. This can be seen with biliary dyskinesia. NM/NM hepatobiliary wo pharm IMPRESSION: 1. Normal visualization of gallbladder consistent with a patent cystic duct. 2. No emptying of the isotope from the gallbladder after oral administration of Ensure. This can be seen with biliary dyskinesia.
[2021-07-24 10:32] VITALS: BP 127/74; PULSE 87; RESP 18; TEMP 36.8; O2SAT 99; BMI 23.9
[2021-07-24] MEDS: Morphine Sulfate 4 MG/ML CARTRIDGE IVPUSH (11:51)
[2021-07-24] MEDS: 0.9 % Sodium Chloride 1,000 ML 999 ML IV (11:51)
[2021-07-24 11:53] LABS: MANUAL DIFF FLAG NO
[2021-07-24] MEDS: ondansetron HCL 4 MG/2 ML VIAL IVPUSH (11:53)
[2021-07-24 11:54] LABS: Basophils Percent Auto 0.4 % (0-2); Eosinophils Absolute Auto 0.1 X10*3/uL (0.0-0.4); Hematocrit 37.8 % (37.0-47.0); Hemoglobin 12.3 g/dl (12.0-16.0); Imm Gran Abs Auto 0.01 X10*3/uL (0.00-0.03); Imm Gran Pct Auto 0.1 % (0.0-0.4); Lymphocytes Absolute Auto 1.5 X10*3/uL (1.2-4.9); Lymphocytes Percent Auto 21.4 % (20-40); Mean Corpuscular HGB Conc 32.5 g/dl (31.0-35.0); Mean Corpuscular Hemoglobin 28.9 pg (27.0-33.0); Mean Corpuscular Volume 88.9 fL (80.0-98.0); Mean Platelet Volume 11.3 fL (9.4-12.3); Monocytes Absolute Auto 0.5 X10*3/uL (0.1-1.2); Monocytes Percent Auto 7.1 % (2-11); Neutrophils Absolute Auto 4.7 x10*3/uL (2.0-8.3); Platelet Count 226 X10*3/uL (160-400); Red Blood Count 4.25 X10*6/uL (4.20-5.50); Red Cell Distribution Width 13.1 % (11.0-16.0); White Blood Count 6.8 X10*3/uL (4.8-10.8)
--- NOTE | 2021-07-24 11:54 | ED.ABDPAIN ---
HPI - Abdominal Pain General Chief Complaint: Abdominal Pain Stated Complaint: Abdominal pain Time Seen by Provider: 07/24/21 11:12 Source: patient Mode of arrival: ambulatory Limitations: no limitations History of Present Illness HPI narrative: 31-year-old female here with reports of right upper abdominal pain with vomiting. Patient tells me she was discharged from this facility yesterday after being admitted for acalculous cholecystitis. During her admission it was recommended she have a cholecystectomy but she declined this. Since being home her pain is resumed and she has been unable to tolerate p.o. fluids due to vomiting. No fevers, chills, urinary symptoms, diarrhea or constipation. Related Data Home Medications Medication Instructions Recorded Confirmed No Known Home Meds 07/24/21 07/24/21 Allergies Allergy/AdvReac Type Severity Reaction Status Date / Time No Known Allergies Allergy Verified 07/20/21 23:22 [No Known Allergies*] Review of Systems Review of Systems Yes all other systems are reviewed and are negative Constitutional: Reports no additional constitutional complaints, Denies body ache(s), Denies chills, Denies fever(s), Denies headache(s) and Denies weakness Eyes: Reports no additional eye complaints and Denies change in vision Reports system reviewed and no additional complaints, except as documented, Denies dizziness, Denies headache(s), Denies nasal congestion, Denies nasal discharge and Denies neck pain Cardiovascular: Reports no additional cardiovascular complaints, Denies chest pain, Denies leg edema and Denies dyspnea Respiratory: Reports no additional respiratory complaints, Denies cough and Denies dyspnea Gastrointestinal: Reports no additional gastrointestinal complaints, Reports abdominal pain, Denies diarrhea, Reports nausea and Reports vomiting Genitourinary: Reports no additional female genitourinary complaints and Denies urinary incontinence Musculoskeletal: Reports no additional musculoskeletal complaints, Denies back pain, Denies arthralgias, Denies joint swelling, Denies neck pain, Denies numbness and Denies tingling Skin/Breast: Reports system reviewed and no additional complaints, except as docu and Denies rash Reports system reviewed and no additional complaints, except as documented, Denies Abnormal speech present, Denies dizziness, Denies headache(s), Denies numbness, Denies tingling and Denies weakness Physical Exam Vital Signs: Vital Signs: Last Vital Signs Temp 98.2 F 07/24/21 10:32 Pulse 78 07/24/21 12:15 Resp 18 07/24/21 12:15 BP 111/68 07/24/21 12:15 Pulse Ox 98 07/24/21 12:15 BMI result Body Mass Index 23.9 Const: General: cooperative, healthy appearing, comfortable and no acute distress Orientation/consciousness: patient oriented x3 Limitations: no limitations HENMT: Head: Yes normal to inspection Ears: hearing grossly normal bilaterally General nose exam: Normal external nose present Face and sinus: Yes normal facial exam Mouth: Normal oral and palatal mucosa present Throat: Yes posterior oropharynx normal Eyes: General: appearance normal, both eyes and all related structures Pupils: Equal, round and reactive pupils present Neck: Neck: Yes normal visual inspection Chest: Chest palpation & inspection: normal inspection of the chest Resp: Effort & Inspection: normal respiratory effort Auscultation: clear to auscultation bilaterally Cardio: Rate: regular rate Rhythm: regular rhythm Peripheral pulses: Peripheral pulses 2+ throughout GI: Inspection: Yes normal to inspection Palpation (GI): Soft to palpation and Tenderness to palpation present (GI) (Right upper quadrant tender with guarding) Auscultation: normal bowel sounds Back/Spine/Pelvis: Thoracic/Lumbar Spine: thoracic and lumbar spine normal to inspection Skin: General skin exam: no rashes or lesions noted Neuro: General: patient oriented x3, no focal motor deficits and normal sensation to monofilament Cranial nerves: Yes Equal, round and reactive pupils present Cognition (Neuro): normal cognition Speech: No Abnormal speech present Gait exam (Neuro): Normal gait present Motor exam (neuro): 5/5 motor strength present throughout Extrem: General: Yes normal to inspection Course Course Course Narrative: 31-year-old female here with reports of right upper quadrant abdominal pain and vomiting since being discharged from this facility yesterday after being admitted for acalculous cholecystitis. On exam tender with guarding. Will check labs, UA. Will place P IV and give antiemetic and provide analgesia. Surgery notified. 1245-patient seen by Dr. Mccurdy general surgery. Concern for acalculous cholecystitis. At this time infection suspected. Antibiotics ordered. MDM - Abdominal Pain Lab Data Result diagrams: 07/24/21 11:44 07/24/21 11:44 Labs: Lab Results 12/27/21 12/27/21 12/27/21 Range/Units 11:44 11:44 11:44 WBC 6.8 (4.8-10.8) X10*3/uL RBC 4.25 (4.20-5.50) X10*6/uL Hgb 12.3 (12.0-16.0) g/dl Hct 37.8 (37.0-47.0) % MCV 88.9 (80.0-98.0) fL MCH 28.9 (27.0-33.0) pg MCHC 32.5 (31.0-35.0) g/dl RDW 13.1 (11.0-16.0) % Plt Count 226 (160-400) X10*3/uL MPV 11.3 (9.4-12.3) fL Immature Gran % (Auto) 0.1 (0.0-0.4) % Neut % (Auto) 70.0 (45-73) % Lymph % (Auto) 21.4 (20-40) % Roberts % (Auto) 7.1 (2-11) % Eos % (Auto) 1.0 (0-4) % Baso % (Auto) 0.4 (0-2) % Lymph # (Auto) 1.5 (1.2-4.9) X10*3/uL Roberts # (Auto) 0.5 (0.1-1.2) X10*3/uL Eos # (Auto) 0.1 (0.0-0.4) X10*3/uL Baso # (Auto) 0.0 (0.0-0.2) X10*3/uL Abs Immat Gran (auto) 0.01 (0.00-0.03) X10*3/uL Absolute Neuts (auto) 4.7 (2.0-8.3) x10*3/uL Absolute Nucleated RBC 0.000 (0.0-0.012) X10*3/uL Nucleated RBC % (auto) 0.0 (0.0-0.2) /100WBC Sodium 136 (135-145) mmol/L Potassium 4.2 (3.3-5.1) mmol/L Chloride 106 (96-108) mmol/L Carbon Dioxide 24 (22-29) mmol/L Anion Gap 10 L (12-20) BUN 14 D (9-16) mg/dL Creatinine 0.80 (0.5-1.4) mg/dL Estim Creat Clear Calc 84.2 Estimated GFR > 60 Random Glucose 88 (60-115) mg/dL Lactic Acid 0.9 (0.5-2.0) mmol/L Calcium 9.5 D (8.4-10.2) mg/dL Total Bilirubin 0.9 (0.0-1.0) mg/dL Direct Bilirubin 0.4 (0.0-0.5) mg/dL AST 196 H (5-31) U/L ALT 284 H (0-31) U/L Alkaline Phosphatase 124 H D (39-117) U/L Total Protein 8.3 H D (6.5-8.0) g/dL Albumin 4.3 D (3.5-5.0) g/dL Urine Color Urine Appearance Urine pH (5.0-8.0) Ur Specific [place] (1.005-1.025) Urine Protein (NEG-TRACE) MG/DL Urine Glucose (UA) (NEG) MG/DL Urine Ketones (NEG) MG/DL Urine Blood (NEG) Urine Nitrite (NEG) Ur Leukocyte Esterase (NEG) Urine RBC (0) /HPF Urine WBC (0-4) /HPF Ur Squamous Epith Cells /LPF Urine Bacteria /LPF Urine Test (NEGATIVE) COVID-19 (VASYL) (Negative) COVID-19 Clin Com 07/24/21 07/24/21 07/24/21 Range/Units 11:44 11:44 11:44 WBC (4.8-10.8) X10*3/uL RBC (4.20-5.50) X10*6/uL Hgb (12.0-16.0) g/dl Hct (37.0-47.0) % MCV (80.0-98.0) fL MCH (27.0-33.0) pg MCHC (31.0-35.0) g/dl RDW (11.0-16.0) % Plt Count (160-400) X10*3/uL MPV (9.4-12.3) fL Immature Gran % (Auto) (0.0-0.4) % Neut % (Auto) (45-73) % Lymph % (Auto) (20-40) % Roberts % (Auto) (2-11) % Eos % (Auto) (0-4) % Baso % (Auto) (0-2) % Lymph # (Auto) (1.2-4.9) X10*3/uL Roberts # (Auto) (0.1-1.2) X10*3/uL Eos # (Auto) (0.0-0.4) X10*3/uL Baso # (Auto) (0.0-0.2) X10*3/uL Abs Immat Gran (auto) (0.00-0.03) X10*3/uL Absolute Neuts (auto) (2.0-8.3) x10*3/uL Absolute Nucleated RBC (0.0-0.012) X10*3/uL Nucleated RBC % (auto) (0.0-0.2) /100WBC Sodium (135-145) mmol/L Potassium (3.3-5.1) mmol/L Chloride (96-108) mmol/L Carbon Dioxide (22-29) mmol/L Anion Gap (12-20) BUN (9-16) mg/dL Creatinine (0.5-1.4) mg/dL Estim Creat Clear Calc Estimated GFR Random Glucose (60-115) mg/dL Lactic Acid (0.5-2.0) mmol/L Calcium (8.4-10.2) mg/dL Total Bilirubin (0.0-1.0) mg/dL Direct Bilirubin (0.0-0.5) mg/dL AST (5-31) U/L ALT (0-31) U/L Alkaline Phosphatase (39-117) U/L Total Protein (6.5-8.0) g/dL Albumin (3.5-5.0) g/dL Urine Color YELLOW Urine Appearance HAZY Urine pH 6.5 (5.0-8.0) Ur Specific [place] 1.025 (1.005-1.025) Urine Protein NEG (NEG-TRACE) MG/DL Urine Glucose (UA) NEG (NEG) MG/DL Urine Ketones 40 (NEG) MG/DL Urine Blood NEG (NEG) Urine Nitrite NEG (NEG) Ur Leukocyte Esterase TRACE H (NEG) Urine RBC 0 (0) /HPF Urine WBC 5-9 H (0-4) /HPF Ur Squamous Epith Cells 3+ /LPF Urine Bacteria TRACE /LPF Urine Test NEGATIVE (NEGATIVE) COVID-19 (VASYL) Negative (Negative) COVID-19 Clin Com See Note Discharge Plan Discharge Clinical Impression: Acalculous cholecystitis Patient Disposition: Admitted As Inpatient [facility] Past Medical History Attestation statement: The following information was validated with the patient. Source: old records reviewed and nursing notes reviewed Social History Social History Household Members: Children Housing: Apartment Do you presently have visiting nurse or other home services: No Patient Tobacco Use Status: Never used Tobacco Advance Directives: No Advance Directives Information Provided: No Patient : No service: No Current occupational status: employed
[2021-07-24 12:00] LABS: Appearance Urine HAZY; Color Urine YELLOW; Glucose Urine UA NEG (NEG); Leukocyte Esterase Urine TRACE (NEG); Nitrite Urine NEG (NEG); PH 6.5 (5.0-8.0); Specific Gravity - Urine 1.025 (1.005-1.025); UACC Culture Trigger YES; Urine Blood NEG (NEG); Urine Ketones 40 MG/DL (NEG); Urine Protein NEG (NEG-TRACE)
[2021-07-24 12:07] LABS: Lactic Acid 0.9 mmol/L (0.5-2.0)
--- NOTE | 2021-07-24 12:10 | PHA.MEDREC ---
Pharmacy Consult ? Medication Reconciliation Pharmacy has completed the medication reconciliation.
[2021-07-24 12:11] LABS: Alanine Aminotransferase 284 U/L (0-31); Albumin Level 4.3 g/dL (3.5-5.0); Alkaline Phosphatase 124 U/L (39-117); Anion Gap 10 (12-20); Aspartate Amino Transferase 196 U/L (5-31); Bilirubin Direct 0.4 mg/dL (0.0-0.5); Bilirubin Total 0.9 mg/dL (0.0-1.0); Blood Urea Nitrogen 14 mg/dL (9-16); Calcium 9.5 mg/dL (8.4-10.2); Carbon Dioxide 24 mmol/L (22-29); Chloride 106 mmol/L (96-108); Creatinine Clr Calc Pharmacy 84.2; Estimated Glomerular Filt Rate > 60; Glucose Random 88 mg/dL (60-115); Potassium 4.2 mmol/L (3.3-5.1); Sodium 136 mmol/L (135-145); Total Protein 8.3 g/dL (6.5-8.0)
[2021-07-24 12:12] LABS: Squamous Epithelial Cell Urine 3+ /LPF
[2021-07-24 12:13] LABS: Bacteria Urine TRACE /LPF; RBC Urine 0 /HPF (0)
[2021-07-24 12:14] LABS: UPreg QC Valid YES; Urine Pregnancy NEGATIVE (NEGATIVE)
[2021-07-24 12:15] VITALS: BP 111/68; PULSE 78; RESP 18; O2SAT 98
[2021-07-24 12:24] LABS: COVID-19 Test Negative (Negative); IDNOW Serial# 55D5AD1C
--- NOTE | 2021-07-24 12:54 | PM.HPGS ---
History of Present Illness History of Present Illness Date of Service: 07/24/21 Chief complaint: Abdominal pain Narrative: Rodolfo Ly is a 31 year old female recently admitted to the surgical service with abdominal pain determined to have acalculous cholecystitis. She complains of right upper quadrant abdominal pain radiating to the right back associated with nausea and vomiting. Ultrasound of the abdomen revealed a thickened gallbladder but with no gallstones. CT of the abdomen and pelvis also showed no gallstones with possible thickened gallbladder wall. The patient was initially started on antibiotics actually felt somewhat improved and therefore was discharged home on . The patient now reports increased abdominal pain in the same location with associated nausea and vomiting. She reports eating this morning but did develop some nausea and vomiting after eating. She denies fever or chills. She is admitted to the surgical service for management of the acute cholecystitis. Review of Systems Constitutional: Constitutional: Denies chills and Denies fever(s) Cardiovascular: Cardiovascular: Denies chest pain, Denies dyspnea and Denies dyspnea on exertion Respiratory: Respiratory: Denies cough, Denies dyspnea and Denies dyspnea on exertion Gastrointestinal: Gastrointestinal: Reports abdominal pain, Denies hematochezia, Denies change in bowel habits, Denies constipation and Denies diarrhea Genitourinary: Genitourinary: Denies hematuria Musculoskeletal: Musculoskeletal: Denies back pain and Denies limited range of motion Neurologic: Denies focal weakness and Denies convulsions Psychiatric: Psychiatric: Denies depression and Denies mood swings PMFSH Social History Social History Household Members: Children Housing: Apartment Do you presently have visiting nurse or other home services: No Patient Tobacco Use Status: Never used Tobacco Advance Directives: No Advance Directives Information Provided: No Patient : No service: No Current occupational status: employed Meds Allergies Allergy/AdvReac Type Severity Reaction Status Date / Time No Known Allergies Allergy Verified 07/20/21 23:22 [No Known Allergies*] Active Medications: Current Medications Piperacillin Sod/Tazobactam (Sod 3.375 gm/ Sodium Chloride) 50 mls @ 100 mls/hr IV ONCE ONE Stop: 07/24/21 13:14 Pharmacy Consult (Consult Rx Perform Med Rec) 1 each MISCELLANE ONCE PRN PRN Reason: Consult order Home Medications Medication Instructions Recorded Confirmed Last Taken Type No Known Home Meds 07/24/21 07/24/21 Unknown History Physical Exam Vital Signs: Vital Signs: Last Vital Signs Temp 98.2 F 07/24/21 10:32 Pulse 78 07/24/21 12:15 Resp 18 07/24/21 12:15 BP 111/68 07/24/21 12:15 Pulse Ox 98 07/24/21 12:15 BMI result Body Mass Index 23.9 Const: General: no acute distress and well developed Nutritional Appearance: well nourished Orientation/consciousness: patient oriented x3 Limitations: no limitations HENMT: Head: Yes normocephalic and Yes atraumatic Ears: hearing grossly normal bilaterally Resp: Effort & Inspection: normal respiratory effort, no audible wheezes and no cough Auscultation: clear to auscultation bilaterally Cardio: Jugular venous distension: no JVD Rate: regular rate Rhythm: regular rhythm Heart sounds: S1 normal heart sound present and S2 normal heart sound present GI: Inspection: Yes normal to inspection Palpation (GI): Soft to palpation, Tenderness to palpation present (GI) in the RUQ and Boogie's sign positive, no guarding, no hernias, no masses and No Rebound tenderness present Percussion: Yes normal to percussion Auscultation: normal bowel sounds Rectal Exam - Female: deferred Skin: General skin exam: no rashes or lesions noted Neuro: General: patient oriented x3 Extrem: General: Yes normal to inspection and Yes no clubbing, cyanosis or edema Results Results Labs: Short CBC 07/24/21 Range/Units 11:44 WBC 6.8 (4.8-10.8) X10*3/uL Hgb 12.3 (12.0-16.0) g/dl Hct 37.8 (37.0-47.0) % Plt Count 226 (160-400) X10*3/uL BMP 07/24/21 11:44 Sodium 136 Potassium 4.2 Chloride 106 Carbon Dioxide 24 BUN 14 D Creatinine 0.80 Calcium 9.5 D Liver Function 07/24/21 Range/Units 11:44 Total Bilirubin 0.9 (0.0-1.0) mg/dL Direct Bilirubin 0.4 (0.0-0.5) mg/dL AST 196 H (5-31) U/L ALT 284 H (0-31) U/L Alkaline Phosphatase 124 H D (39-117) U/L Albumin 4.3 D (3.5-5.0) g/dL Urine 07/24/21 07/24/21 Range/Units 11:44 11:44 Urine Color YELLOW Urine Appearance HAZY Urine pH 6.5 (5.0-8.0) Ur Specific [place] 1.025 (1.005-1.025) Urine Protein NEG (NEG-TRACE) MG/DL Urine Glucose (UA) NEG (NEG) MG/DL Urine Test NEGATIVE (NEGATIVE) Assessment and Plan (1) Acalculous cholecystitis: Status: Acute 31-year-old female patient presenting with return of abdominal pain in the right upper quadrant, previously diagnosed with acalculous cholecystitis. She will be made NPO and started on IV fluids. I will also start antibiotics intravenously once again. I will request a HIDA scan as well. Quality Stroke Does the patient have a stroke diagnosis?: No VTE Prior VTE?: No VTE Risk Level:: Surgical - low VTE Device Contraindication: N/A - Device Ordered VTE Drug Contraindication: N/A - Med Ordered Procedures Date of Service Date of Service: 07/24/21
[2021-07-24] MEDS: Piperacillin Sodium/Tazobactam 3.375 GM in 0.9 % Sodium Chloride 50 ML IV ×2 (13:14→21:15)
[2021-07-24] MEDS: Dextrose 5 % and Lactated Ring 1,000 ML 125 ML IVCONT ×2 (13:51→22:11)
[2021-07-24] MEDS: 0.9 % Sodium Chloride Flush 3 ML SYRINGE IVFLUSH (18:09)
[2021-07-24 18:10] VITALS: BP 100/60; PULSE 81; RESP 15; TEMP 37.2; O2SAT 98
[2021-07-24] MEDS: HYDROmorphone HCl 0.5 MG/0.5 ML SYRINGE IVPUSH (21:14)
[2021-07-24 22:23] VITALS: BP 119/84; PULSE 73; RESP 18; TEMP 37.1; O2SAT 99
[2021-07-25] VITALS (15 sets, daily range): BP systolic 99–119; BP diastolic 60–79; PULSE 72–87; RESP 16–20; TEMP 36.3–37.1; O2SAT 93–100
--- NOTE | 2021-07-25 01:08 | PC.NURSE ---
pt is resting. no sign of distress at this time.
[2021-07-25] MEDS: Piperacillin Sodium/Tazobactam 3.375 GM in 0.9 % Sodium Chloride 50 ML IV ×3 (01:25→19:22)
[2021-07-25] MEDS: ondansetron HCL 4 MG/2 ML VIAL IVPUSH (03:09)
[2021-07-25] MEDS: HYDROmorphone HCl 0.5 MG/0.5 ML SYRINGE IVPUSH (03:09)
[2021-07-25] MEDS: Dextrose 5 % and Lactated Ring 1,000 ML 125 ML IVCONT ×2 (05:48→16:08)
[2021-07-25 06:11] LABS: MANUAL DIFF FLAG NO
[2021-07-25 06:15] LABS: Basophils Percent Auto 0.6 % (0-2); Eosinophils Absolute Auto 0.2 X10*3/uL (0.0-0.4); Eosinophils Percent Auto 3.5 % (0-4); Hematocrit 34.2 % (37.0-47.0); Hemoglobin 10.9 g/dl (12.0-16.0); Imm Gran Abs Auto 0.01 X10*3/uL (0.00-0.03); Imm Gran Pct Auto 0.2 % (0.0-0.4); Lymphocytes Absolute Auto 1.6 X10*3/uL (1.2-4.9); Lymphocytes Percent Auto 28.6 % (20-40); Mean Corpuscular HGB Conc 31.9 g/dl (31.0-35.0); Mean Corpuscular Hemoglobin 28.7 pg (27.0-33.0); Mean Platelet Volume 11.2 fL (9.4-12.3); Monocytes Absolute Auto 0.5 X10*3/uL (0.1-1.2); Monocytes Percent Auto 9.2 % (2-11); Neutrophils Absolute Auto 3.1 x10*3/uL (2.0-8.3); Neutrophils Percent Auto 57.9 % (45-73); Platelet Count 200 X10*3/uL (160-400); Red Cell Distribution Width 12.9 % (11.0-16.0); White Blood Count 5.4 X10*3/uL (4.8-10.8)
[2021-07-25 06:58] LABS: Anion Gap 7 (12-20); Blood Urea Nitrogen 7 mg/dL (9-16); Calcium 8.9 mg/dL (8.4-10.2); Carbon Dioxide 27 mmol/L (22-29); Chloride 106 mmol/L (96-108); Creatinine Clr Calc Pharmacy 87.6; Estimated Glomerular Filt Rate > 60; Glucose Random 117 mg/dL (60-115); Potassium 4.3 mmol/L (3.3-5.1); Sodium 136 mmol/L (135-145)
--- NOTE | 2021-07-25 08:03 | P.PNGS_ITS ---
Subjective Subjective Date of Service: 07/25/21 Interval history: Patient reports nausea this morning improved after Zofran. Her abdominal pain is improved however. HIDA scan shows visualization of the gallbladder but biliary dyskinesia with no emptying of the gallbladder with stimulation. Physical Exam Vital Signs: Vital Signs: Last Vital Signs Temp 98.7 F 07/25/21 03:14 Pulse 77 07/25/21 03:14 Resp 18 07/25/21 03:14 BP 112/67 07/25/21 03:14 Pulse Ox 99 07/25/21 03:14 BMI result Body Mass Index 23.9 Const: General: cooperative and no acute distress Nutritional Appearance: well nourished Orientation/consciousness: patient oriented x3 Limitations: no limitations Eyes: Other: No jaundice Resp: Effort & Inspection: normal respiratory effort Auscultation: clear to auscultation bilaterally GI: Inspection: Yes normal to inspection Palpation (GI): Soft to palpation, Tenderness to palpation present (GI) in the RUQ and Boogie's sign positive and N o hepatosplenomegaly present Percussion: Yes normal to percussion Auscultation: normal bowel sounds Rectal Exam - Female: deferred Skin: General skin exam: no rashes or lesions noted Neuro: General: patient oriented x3 Extrem: General: Yes no clubbing, cyanosis or edema Objective Data Active Medications Acetaminophen (Acetaminophen 325 Mg Tablet) 650 mg PO QID PRN PRN Reason: headache, temp > 101 Hydromorphone HCl (Hydromorphone Hcl 0.5 Mg/0.5 Ml Syringe) 0.5 mg IVPUSH Q2H PRN; Protocol PRN Reason: abdominal pain Last Admin: 07/25/21 03:09 Dose: 0.5 mg Documented by: ASHELYASY Dextrose/Lactated Ringer's (D5lr) 1,000 mls @ 125 mls/hr IVCONT .Q8H [facility] Last Admin: 07/25/21 05:48 Dose: 125 mls/hr Documented by: ASHELYASY Piperacillin Sod/Tazobactam (Sod 3.375 gm/ Sodium Chloride) 50 mls @ 100 mls/hr IV Q6H [facility] Last Admin: 07/25/21 06:36 Dose: 100 mls/hr Documented by: ASHELYASY Ondansetron HCl (Ondansetron Hcl 4 Mg/2 Ml Vial) 4 mg IVPUSH QID PRN PRN Reason: Nausea Last Admin: 07/25/21 03:09 Dose: 4 mg Documented by: LOS Pharmacy Consult (Consult Rx Perform Med Rec) 1 each MISCELLANE ONCE PRN PRN Reason: Consult order Sodium Chloride (0.9 % Sodium Chloride Flush 3 Ml Syringe) 3 ml IVFLUSH QSHIFT [facility] Last Admin: 07/25/21 01:47 Dose: Not Given Documented by: CHARIS Non-Admin Reason: IV Running Zolpidem Tartrate (Zolpidem Tartrate 5 Mg Tablet) 5 mg PO BEDTIME PRN PRN Reason: Insomnia Labs CBC & Chem 7: 07/25/21 05:48 07/25/21 05:48 Labs: Laboratory Results - last 24 hr 07/24/21 07/24/21 07/24/21 11:44 11:44 11:44 MCV 88.9 MCH 28.9 MCHC 32.5 RDW 13.1 Plt Count 226 MPV 11.3 Immature Gran % (Auto) 0.1 Neut % (Auto) 70.0 Lymph % (Auto) 21.4 [place] % (Auto) 7.1 Eos % (Auto) 1.0 Baso % (Auto) 0.4 Lymph # (Auto) 1.5 [place] # (Auto) 0.5 Eos # (Auto) 0.1 Baso # (Auto) 0.0 Abs Immat Gran (auto) 0.01 Absolute Neuts (auto) 4.7 Absolute Nucleated RBC 0.000 Nucleated RBC % (auto) 0.0 Anion Gap 10 L Estim Creat Clear Calc 84.2 Estimated GFR > 60 Random Glucose 88 Lactic Acid 0.9 Calcium 9.5 D Total Bilirubin 0.9 Direct Bilirubin 0.4 AST 196 H ALT 284 H Alkaline Phosphatase 124 H D Total Protein 8.3 H D Albumin 4.3 D Urine Color Urine Appearance Urine pH Ur Specific [place] Urine Protein Urine Glucose (UA) Urine Ketones Urine Blood Urine Nitrite Ur Leukocyte Esterase Urine RBC Urine WBC Ur Squamous Epith Cells Urine Bacteria Urine Test COVID-19 (VASYL) COVID-19 Clin Com 07/24/21 07/24/21 07/24/21 11:44 11:44 11:44 MCV MCH MCHC RDW Plt Count MPV Immature Gran % (Auto) Neut % (Auto) Lymph % (Auto) [place] % (Auto) Eos % (Auto) Baso % (Auto) Lymph # (Auto) [place] # (Auto) Eos # (Auto) Baso # (Auto) Abs Immat Gran (auto) Absolute Neuts (auto) Absolute Nucleated RBC Nucleated RBC % (auto) Anion Gap Estim Creat Clear Calc Estimated GFR Random Glucose Lactic Acid Calcium Total Bilirubin Direct Bilirubin AST ALT Alkaline Phosphatase Total Protein Albumin Urine Color YELLOW Urine Appearance HAZY Urine pH 6.5 Ur Specific [place] 1.025 Urine Protein NEG Urine Glucose (UA) NEG Urine Ketones 40 Urine Blood NEG Urine Nitrite NEG Ur Leukocyte Esterase TRACE H Urine RBC 0 Urine WBC 5-9 H Ur Squamous Epith Cells 3+ Urine Bacteria TRACE Urine Test NEGATIVE COVID-19 (VASYL) Negative COVID-19 Clin Com See Note 07/25/21 07/25/21 05:48 05:48 MCV 90.0 MCH 28.7 MCHC 31.9 RDW 12.9 Plt Count 200 MPV 11.2 Immature Gran % (Auto) 0.2 Neut % (Auto) 57.9 Lymph % (Auto) 28.6 [place] % (Auto) 9.2 Eos % (Auto) 3.5 Baso % (Auto) 0.6 Lymph # (Auto) 1.6 [place] # (Auto) 0.5 Eos # (Auto) 0.2 Baso # (Auto) 0.0 Abs Immat Gran (auto) 0.01 Absolute Neuts (auto) 3.1 Absolute Nucleated RBC 0.000 Nucleated RBC % (auto) 0.0 Anion Gap 7 L Estim Creat Clear Calc 87.6 Estimated GFR > 60 Random Glucose 117 H Lactic Acid Calcium 8.9 D Total Bilirubin Direct Bilirubin AST ALT Alkaline Phosphatase Total Protein Albumin Urine Color Urine Appearance Urine pH Ur Specific [place] Urine Protein Urine Glucose (UA) Urine Ketones Urine Blood Urine Nitrite Ur Leukocyte Esterase Urine RBC Urine WBC Ur Squamous Epith Cells Urine Bacteria Urine Test COVID-19 (VASYL) COVID-19 Clin Com Procedures Date of Service Date of Service: 07/25/21 Progress Note: A&P Assessment and plan (1) Acalculous cholecystitis: Status: Acute (2) Biliary dyskinesia: Status: Acute Assessment and Plan: 31-year-old female patient presenting with complaints of abdominal pain in the right upper quadrant associated with p.o. intake. Initial workup revealed no gallstones within the gallbladder however HIDA scan does reveal evidence of biliary dyskinesia. I reviewed the test results with patient and discussed laparoscopic or possible open cholecystectomy. After a review of the procedure, risks, and alternatives, she consents to the laparoscopic or possible open cholecystectomy. She has been added onto the operative schedule for today. Fall Risk Details Current Medications: Current Medications Acetaminophen (Acetaminophen 325 Mg Tablet) 650 mg PO QID PRN PRN Reason: headache, temp > 101 Hydromorphone HCl (Hydromorphone Hcl 0.5 Mg/0.5 Ml Syringe) 0.5 mg IVPUSH Q2H PRN; Protocol PRN Reason: abdominal pain Last Admin: 07/25/21 03:09 Dose: 0.5 mg Documented by: Dextrose/Lactated Ringer's (D5lr) 1,000 mls @ 125 mls/hr IVCONT .Q8H [facility] Last Admin: 07/25/21 05:48 Dose: 125 mls/hr Documented by: Piperacillin Sod/Tazobactam (Sod 3.375 gm/ Sodium Chloride) 50 mls @ 100 mls/hr IV Q6H [facility] Last Admin: 07/25/21 06:36 Dose: 100 mls/hr Documented by: Ondansetron HCl (Ondansetron Hcl 4 Mg/2 Ml Vial) 4 mg IVPUSH QID PRN PRN Reason: Nausea Last Admin: 07/25/21 03:09 Dose: 4 mg Documented by: Pharmacy Consult (Consult Rx Perform Med Rec) 1 each MISCELLANE ONCE PRN PRN Reason: Consult order Sodium Chloride (0.9 % Sodium Chloride Flush 3 Ml Syringe) 3 ml IVFLUSH QSHIFT [facility] Last Admin: 07/25/21 01:47 Dose: Not Given Documented by: Zolpidem Tartrate (Zolpidem Tartrate 5 Mg Tablet) 5 mg PO BEDTIME PRN PRN Reason: Insomnia Time Spent With Patient Time: Total time spent is greater than 50% in coordination of care (as doc umented) at patient's floor/unit and/or counseling patient: Time with patient: 15 - 24 minutes Quality Stroke Does the patient have a stroke diagnosis?: No VTE Prior VTE?: No VTE Risk Level:: Surgical - low VTE Device Contraindication: N/A - Device Ordered VTE Drug Contraindication: N/A - Med Ordered
--- NOTE | 2021-07-25 11:26 | MHC.CM.PN ---
CM MET WITH PT WITH THE ASSISTANCE OF A [facility] [place] [employer] PT REPORTS SHE LIVES AT HOME WITH HER 3 CHILDREN PT IS INDEPENDENT WITH CARE PT DENIES USE OF DME OR HOME SERVICES PT DOES NOT HAVE A PCP AT THIS TIME BUT REPORTS SHE KNOWS HOW TO OBTAIN ONE BASED ON HER INSURANCE COMPANIES PROTOCOL CURRENT DC PLAN IS HOME WITH NO SERVICES PTS CAR IS IN THE LOT
--- NOTE | 2021-07-25 12:00 | HO.ANESPROP2 ---
[facility] Active Problems Active Problems: All Active Problems (Updated 07/25/21 @ 08:05 by Butch Mccurdy MD) Biliary dyskinesia (Acute) Acalculous cholecystitis (Acute) Abdominal pain (Acute) Family History Family history of problems with anesthesia: No Surgical History History of Problems with Anesthesia: No Social History Social History Household Members: Family Housing: Apartment Do you presently have visiting nurse or other home services: No Patient Tobacco Use Status: Never used Tobacco Use of substances other than those prescribed or required for medical reasons: No Currently Displaying Signs/Symptoms of Drug Intoxication Withdrawal: No Have you been hit, kicked, punched, or otherwise hurt by someone within the past year? If so, by whom?: No Do you feel safe in your current relationship?: Yes Is there a partner from a previous relationship who is making you feel unsafe now?: No Are you made to feel afraid or neglected: No Are you DNR?: No Advance Directives: No Advance Directives Information Provided: No Do you have thoughts of harming others: None Do you have a plan to hurt others: No Plan Recently lost weight without trying: No Nutrition Risks: No Nutritional Risk Patient : No service: No Current occupational status: employed Meds Allergies Allergy/AdvReac Type Severity Reaction Status Date / Time No Known Allergies Allergy Verified 07/20/21 23:22 [No Known Allergies*] Active Medications: Current Medications Acetaminophen (Acetaminophen 325 Mg Tablet) 650 mg PO QID PRN PRN Reason: headache, temp > 101 Hydromorphone HCl (Hydromorphone Hcl 0.5 Mg/0.5 Ml Syringe) 0.5 mg IVPUSH Q2H PRN; Protocol PRN Reason: abdominal pain Last Admin: 07/25/21 03:09 Dose: 0.5 mg Documented by: Dextrose/Lactated Ringer's (D5lr) 1,000 mls @ 125 mls/hr IVCONT .Q8H [facility] Last Admin: 07/25/21 05:48 Dose: 125 mls/hr Documented by: Piperacillin Sod/Tazobactam (Sod 3.375 gm/ Sodium Chloride) 50 mls @ 100 mls/hr IV Q6H [facility] Last Admin: 07/25/21 06:36 Dose: 100 mls/hr Documented by: Ondansetron HCl (Ondansetron Hcl 4 Mg/2 Ml Vial) 4 mg IVPUSH QID PRN PRN Reason: Nausea Last Admin: 07/25/21 03:09 Dose: 4 mg Documented by: Pharmacy Consult (Consult Rx Perform Med Rec) 1 each MISCELLANE ONCE PRN PRN Reason: Consult order Sodium Chloride (0.9 % Sodium Chloride Flush 3 Ml Syringe) 3 ml IVFLUSH QSHIFT [facility] Last Admin: 07/25/21 01:47 Dose: Not Given Documented by: Zolpidem Tartrate (Zolpidem Tartrate 5 Mg Tablet) 5 mg PO BEDTIME PRN PRN Reason: Insomnia Home Medications Medication Instructions Recorded Confirmed Last Taken Type No Known Home Meds 07/24/21 07/24/21 Unknown History Exam Exam Date and Time: July 25, 2021 1200 Height,Weight and Vital Signs: Height 5 ft 3 in Weight 61.235 kg Last Vital Signs Temp 98.6 F 07/25/21 11:51 Pulse 75 07/25/21 11:51 Resp 16 07/25/21 11:51 BP 116/73 07/25/21 11:51 Pulse Ox 99 07/25/21 11:51 Pertinent Lab Results Pertinent Lab Results: Laboratory Tests 07/24/21 07/24/21 07/24/21 11:44 11:44 11:44 WBC 6.8 RBC 4.25 Hgb 12.3 Hct 37.8 MCV 88.9 MCH 28.9 MCHC 32.5 RDW 13.1 Plt Count 226 MPV 11.3 Immature Gran % (Auto) 0.1 Neut % (Auto) 70.0 Lymph % (Auto) 21.4 [place] % (Auto) 7.1 Eos % (Auto) 1.0 Baso % (Auto) 0.4 Lymph # (Auto) 1.5 [place] # (Auto) 0.5 Eos # (Auto) 0.1 Baso # (Auto) 0.0 Abs Immat Gran (auto) 0.01 Absolute Neuts (auto) 4.7 Absolute Nucleated RBC 0.000 Nucleated RBC % (auto) 0.0 Sodium 136 Potassium 4.2 Chloride 106 Carbon Dioxide 24 Anion Gap 10 L BUN 14 D Creatinine 0.80 Estim Creat Clear Calc 84.2 Estimated GFR > 60 Random Glucose 88 Lactic Acid 0.9 Calcium 9.5 D Total Bilirubin 0.9 Direct Bilirubin 0.4 AST 196 H ALT 284 H Alkaline Phosphatase 124 H D Total Protein 8.3 H D Albumin 4.3 D Urine Color Urine Appearance Urine pH Ur Specific [place] Urine Protein Urine Glucose (UA) Urine Ketones Urine Blood Urine Nitrite Ur Leukocyte Esterase Urine RBC Urine WBC Ur Squamous Epith Cells Urine Bacteria Urine Test COVID-19 (VASYL) COVID-19 Clin Com 07/24/21 07/24/21 07/24/21 11:44 11:44 11:44 WBC RBC Hgb Hct MCV MCH MCHC RDW Plt Count MPV Immature Gran % (Auto) Neut % (Auto) Lymph % (Auto) [place] % (Auto) Eos % (Auto) Baso % (Auto) Lymph # (Auto) [place] # (Auto) Eos # (Auto) Baso # (Auto) Abs Immat Gran (auto) Absolute Neuts (auto) Absolute Nucleated RBC Nucleated RBC % (auto) Sodium Potassium Chloride Carbon Dioxide Anion Gap BUN Creatinine Estim Creat Clear Calc Estimated GFR Random Glucose Lactic Acid Calcium Total Bilirubin Direct Bilirubin AST ALT Alkaline Phosphatase Total Protein Albumin Urine Color YELLOW Urine Appearance HAZY Urine pH 6.5 Ur Specific [place] 1.025 Urine Protein NEG Urine Glucose (UA) NEG Urine Ketones 40 Urine Blood NEG Urine Nitrite NEG Ur Leukocyte Esterase TRACE H Urine RBC 0 Urine WBC 5-9 H Ur Squamous Epith Cells 3+ Urine Bacteria TRACE Urine Test NEGATIVE COVID-19 (VASYL) Negative COVID-19 Clin Com See Note 07/25/21 07/25/21 05:48 05:48 WBC 5.4 RBC 3.80 L Hgb 10.9 L Hct 34.2 L MCV 90.0 MCH 28.7 MCHC 31.9 RDW 12.9 Plt Count 200 MPV 11.2 Immature Gran % (Auto) 0.2 Neut % (Auto) 57.9 Lymph % (Auto) 28.6 [place] % (Auto) 9.2 Eos % (Auto) 3.5 Baso % (Auto) 0.6 Lymph # (Auto) 1.6 [place] # (Auto) 0.5 Eos # (Auto) 0.2 Baso # (Auto) 0.0 Abs Immat Gran (auto) 0.01 Absolute Neuts (auto) 3.1 Absolute Nucleated RBC 0.000 Nucleated RBC % (auto) 0.0 Sodium 136 Potassium 4.3 Chloride 106 Carbon Dioxide 27 Anion Gap 7 L BUN 7 L Creatinine 0.77 Estim Creat Clear Calc 87.6 Estimated GFR > 60 Random Glucose 117 H Lactic Acid Calcium 8.9 D Total Bilirubin Direct Bilirubin AST ALT Alkaline Phosphatase Total Protein Albumin Urine Color Urine Appearance Urine pH Ur Specific [place] Urine Protein Urine Glucose (UA) Urine Ketones Urine Blood Urine Nitrite Ur Leukocyte Esterase Urine RBC Urine WBC Ur Squamous Epith Cells Urine Bacteria Urine Test COVID-19 (VASYL) COVID-19 Clin Com Airway Mallampati Class: II TM Dist: >3cm Neck ROM: Full Assessment and Plan Assessment Anesthesia Assessment: Anesthesia Plan Discussed and Chart Reviewed Final Anesthetic Review Family History of Problems with Anesthesia: No History of Problems with Anesthesia: No NPO: Yes ASA Class: I and Emergency Final Preanesthetic Review: Meds/Allgs Chart Reviewed, Consent Obtained/Reviewed and Anes Risks/Benef Reviewed Patient Risk: Low Procedure Risk: Intermediate Anesthetic Plan Anesthetic Plan: GA Disposition: Standard PACU
[2021-07-25] MEDS: Lactated Ringers 1,000 ML 100 ML IVCONT (12:03)
--- NOTE | 2021-07-25 14:20 | W.PM.OPN ---
Operative Note Operative Note Date of Service: 07/25/21 Narrative: Preoperative diagnosis: Acalculous cholecystitis, biliary dyskinesia Postoperative diagnosis: Same Procedure: Laparoscopic cholecystectomy Surgeon: Butch Mccurdy MD Loader Technician: ENMANUEL Watkins Anesthesia: General endotracheal Indications for procedure: 31-year-old female patient presenting with persistent pain in the right upper quadrant radiating to the back. Workup with ultrasound and CT was negative for gallstones however thickened gallbladder wall was identified. Subsequent HIDA scan revealed visualization of the gallbladder however a delayed ejection fraction was identified. Findings were consistent with biliary dyskinesia. Operative findings: Inflamed and edematous gallbladder wall. No apparent gallstones. Specimen: gallbladder Estimated blood loss: 5 mL Complications: None Procedure details: Patient was brought to the OR and placed in a supine position. After administering general anesthesia the patient's abdomen was prepped with ChloraPrep and draped in a sterile fashion. Local anesthesia consisting of 0.5% Sensorcaine without epinephrine was infiltrated in a periumbilical region. A 5 mm incision was made above the umbilicus in a transverse fashion. The Veress needle was then inserted while elevating abdominal cavity with towel clips. After positive drop test the abdomen was insufflated to a pressure of 15 mm of mercury. The Veress needle was then removed and a 5 mm trocar inserted. The camera was inserted in the abdomen explored. A 12 mm trocar was then placed in the epigastrium and two 5 mm trocars placed in the right upper quadrant. The patient was placed in reverse Trendelenburg positioning and rotated to the left. The gallbladder was grasped with the fundus and retracted cephalad.. The infundibulum was then grasped and retracted away from the liver bed. The Dolphin dissected was then used to dissect the peritoneum off the infundibulum to reveal the junction with the cystic duct. Cystic artery was noted slightly medial and posterior to the cystic duct. After obtaining a critical view the cystic duct was doubly clipped and divided. The cystic artery was then doubly clipped and divided. The gallbladder was then dissected off the liver bed using electrocautery with an L hook. Hemostasis was assured all times using the electrocautery. When the gallbladder is completely dissected off the liver bed was placed in an Endo-Catch bag and brought out through the epigastric incision. The gallbladder was sent to pathology for further examination. The abdomen was then re-examined. The liver bed was irrigated and suctioned dry. No bleeding or bile leak could be identified. CO2 was then evacuated and all trocars removed. Fascia was closed at the epigastric incision using a [id number] 0 Polysorb suture. Skin was closed in all incisions using a subcuticular 4 0 Polysorb suture. Sterile dressings consisting of Steri-Strips, 2 x 2 gauze, and Tegaderm were then applied. The patient tolerated the procedure well. Sponge instrument and needle counts reported as correct. The patient was transferred to PACU in stable condition.
[2021-07-25] MEDS: fentaNYL citrate/PF 100 MCG/2 ML VIAL 50 MCG IVPUSH ×2 (14:45→14:50)
[2021-07-25] MEDS: 0.9 % Sodium Chloride Flush 3 ML SYRINGE IVFLUSH (16:07)
[2021-07-25] MEDS: oxyCODONE HCl Immed Release 5 MG TABLET PO ×2 (17:45→22:20)
[2021-07-26] VITALS: BP 110/62; PULSE 79; RESP 18; TEMP 36.9; O2SAT 100
[2021-07-26] MEDS: Piperacillin Sodium/Tazobactam 3.375 GM in 0.9 % Sodium Chloride 50 ML IV ×2 (01:27→06:41)
[2021-07-26] MEDS: Dextrose 5 % and Lactated Ring 1,000 ML 125 ML IVCONT (01:57)
[2021-07-26] MEDS: oxyCODONE HCl Immed Release 5 MG TABLET PO ×2 (02:11→09:47)
[2021-07-26 08:00] VITALS: BP 97/60; PULSE 77; RESP 18; TEMP 37.3; O2SAT 99
--- NOTE | 2021-07-26 08:31 | PM.DS ---
DS: Providers Provider Date of Service: 07/26/21 Date of admission: 07/24/21 13:00 Date of discharge: 07/26/21 Primary care physician: Marisol Physician Admitting clinician: Butch Mccurdy Discharging clinician: Butch Mccurdy DS: Diagnosis Discharge Diagnosis (1) Acalculous cholecystitis: Status: Acute (2) Biliary dyskinesia: Status: Acute DS: Summary Hospital Course Hospital Course: 31-year-old female patient presenting with complaints of abdominal pain in the right upper quadrant which she would be associated with fatty food intake. Patient was initially admitted to the surgical service and determined to have acute acalculous cholecystitis with a CT abdomen and pelvis which revealed a thickened gallbladder wall no gallstones. This was also confirmed by ultrasound. Over the next 24 hours however the patient felt improved and subsequently was discharged home. She returned once again to the emergency department on Saturday morning with increased abdominal pain associated with food intake. A HIDA scan was obtained which showed visualization of the gallbladder but a delayed emptying with ejection fraction of 0%. This was felt to be significant for acalculous biliary dyskinesia. After discussion of the procedure, risks, and alternatives, the patient consented to a laparoscopic possible open cholecystectomy. She was taken to the OR on 07/17/2021 for a laparoscopic cholecystectomy. Operative findings were consistent with cholecystitis with a thickened gallbladder wall with edema within the gallbladder wall. No adhesions were noted to the undersurface of the gallbladder. She underwent an uneventful laparoscopic cholecystectomy. [facility] On [facility] 1 patient felt more comfortable with decreased abdominal pain. She did have some incisional discomfort. He is able to tolerate a regular diet without nausea or vomiting. She is also able to ambulate independently. She feels comfortable enough for discharge to home. She is instructed to avoid fatty/fried foods for the next month. She should also avoid lifting greater than 10 lb for the next 2 weeks. Should follow-up in my office in approximately 1 week for wound check. She should also call for increased abdominal pain, fever, chills, incisional redness or discharge or other abdominal concerns. She expressed understanding and agrees with the plan. Time spent discussing smoking cessation with patient: 3 to 10 minutes Status at Discharge Functional status at discharge: independent ambulation Overall status at discharge: patient is progressing back to baseline Time Spent with Patient Time attestation: Total time spent providing and/or coordinating discharge services: Discharge coordination time: Less than 30 minutes Quality: Stroke Does the patient have a stroke diagnosis?: No Physical Exam Vital Signs: Vital Signs: Last Vital Signs Temp 99.2 F 07/26/21 08:00 Pulse 77 07/26/21 08:00 Resp 18 07/26/21 08:00 BP 97/60 07/26/21 08:00 Pulse Ox 99 07/26/21 08:00 BMI result Body Mass Index 23.9 Const: General: healthy appearing and no acute distress Nutritional Appearance: well nourished Orientation/consciousness: patient oriented x3 Limitations: no limitations HENMT: Head: Yes normocephalic and Yes atraumatic Eyes: Sclerae: sclerae normal Resp: Effort & Inspection: normal respiratory effort GI: Inspection: Yes normal to inspection Palpation (GI): Soft to palpation, no guarding and not rigid Percussion: Yes normal to percussion Skin: General skin exam: no rashes or lesions noted Neuro: General: patient oriented x3 Extrem: General: Yes no clubbing, cyanosis or edema DS: Data Data Completed and Pending Pending studies at discharge: Pending at discharge 07/25/21 14:04 Surgical [PTH] Routine Labs on day of discharge: Preliminary micro results at discharge 07/24/21 12:17 Blood Culture - Preliminary Blood - Venous No growth after 24 hours. 07/24/21 11:44 Blood Culture - Preliminary Blood - Venous No growth after 24 hours. Discharge Plan Discharge Patient Disposition: Home, Self-Care Discharge Diagnosis: Acute acalculus cholecystitis Referrals: Butch Mccurdy MD [Physician] - 1 Week PhysicianMarisol [Primary Care Provider] - 1 Week Discharge Medications: New oxycodone-acetaminophen [Endocet] 5-325 mg tablet 1 tab PO Q6H PRN (Reason: pain (scale score 7-10)) Qty: 15 RF: 0 Discharge Orders: Discharge Order (Routine); Ordered 07/26/21 Ordered By: Butch Mccurdy Diet: advance to usual diet Activity on Discharge: No heavy lifting Stand Alone Forms: Patient Portal Discharge page Print Language: [place]alander Activity Restrictions/Additional Instructions: If the incision area is tender, you may apply an ice pack for short intervals (No more than 20 minutes on, followed by at least 20 minutes off). Do not apply heat. Do not use creams, lotions, or topical antibiotics unless instructed to do so by your surgeon. These can cause infection or allergic reaction. Ok to shower. You may remove the plastic dressing in three days following the surgery and may still shower. Do not remove the white steri-strips, but allow them to fall off by themselves. Avoid lifting > 10 pounds for the next two weeks Avoid oily or fried foods for one month following the surgery Call the office at [phone] to schedule a follow up appointment in one week. The office is located above the emergency department at [address] [place] [address], third floor. Call Your Doctor If: -Your temperature exceeds 101.5? F -You experience excessive pain or swelling -You have an unexpected reaction to medication -You have excessive bleeding -You experience continued vomiting/nausea -Your incision begins to separate -Your incision shows signs of infection such as increased redness, swelling, excessive pain, drainage (light blood or clear fluid is normal) or heat Care Plan Goals: Return to normal diet and activity Health Concerns: Abdominal pain right upper quadrant Plan of Treatment: Laparoscopic cholecystectomy on 07/25/2021 Assessment: Acute acalculous cholecystitis, biliary dyskinesia
--- NOTE | 2021-07-26 10:04 | HO.POSTANES ---
Post Anesthesia Evaluation Post Anesthesia Evaluation Vital Signs: Vital Signs Temp Pulse Resp BP Pulse Ox 07/26/21 08:00 99.2 F 77 18 97/60 99 07/26/21 00:00 98.5 F 79 18 110/62 100 07/25/21 23:46 18 Anesthesia: General Endotracheal-GETA Mental Status: Awake Pain Control: Satisfactory Nausea/Vomiting: None Hydration: Adequate Anesthesia-Related Issues: No Anes. Related Issues
--- NOTE | 2021-07-26 12:20 | MHC.CM.PN ---
Female 31 S?P Yeimy discharged today to home with family assist and transport.
== END 2021-07-26 10:12 | disposition home or self-care (01) | DRG 263 ==
LOC: HO.ED 13:47 → HO.EDOVER 16:13 → HO.S3 23:16
PROVIDERS: Nurse Practitioner Family; Admitting Provider Surgery; Emergency Provider Emergency Medicine; PCP Registered Nurse Community Health; Visit Provider Surgery
PROC: 0FT44ZZ Resection of Gallbladder, Percutaneous Endoscopic Approach (ICD-10-PCS; CPT 47562; principal; 2021-07-25 12:30)
DX: K81.9 Cholecystitis, unspecified (principal); K82.8 Other specified diseases of gallbladder; Z20.822 Contact with and (suspected) exposure to COVID-19
CPT/HCPCS: 47562; 36415; 78226; 80048; 80076; 81001; 81003; 81025; 83605; 85025; 87040; 87086; 87635; 88304; 96361; 96365; 96375; 99218; 99285; A9537; J1100; J1170; J2250; J2270; J2405; J2543; J3010

== ENCOUNTER 2024-04-01 14:30 | Emergency (ER) | payer MEDICAID, SELFPAY ==
--- NOTE | ~2024-04-01 | XR_ITS ---
EXAMINATION: XR CHEST CLINICAL INFORMATION: Shortness of breath COMPARISON: None available. TECHNIQUE: 2 views of the chest were obtained. FINDINGS: No acute finding. The lung santiago are felt to be grossly clear. There is no infiltrate or effusion. The cardiac silhouette is within normal limits. The hilar regions do not appear pathologically enlarged. Scoliosis noted in the spine convex left apex at T5 XR/XR chest 2V IMPRESSION: No acute finding. Electronically signed by: David Palomo MD 04/01/2024 04:46 PM EDT RP
--- NOTE | 2024-04-01 14:32 | ECG_ITS ---
Test Reason : CHEST PAIN Blood Pressure : / mmHG Vent. Rate : 079 BPM Atrial Rate : 079 BPM P-R Int : 150 ms QRS Dur : 080 ms QT Int : 400 ms P-R-T Axes : 053 051 044 degrees QTc Int : 458 ms Normal sinus rhythm Normal ECG No previous ECGs available Referred By: Simin John Electronically Signed By:MARÍA ARROYO
[2024-04-01 14:54] VITALS: BP 135/82; PULSE 87; RESP 24; TEMP 36.8; O2SAT 100; BMI 22.3
--- NOTE | 2024-04-01 14:58 | ED_ITS ---
HPI - Chest Pain General Chief Complaint: Chest Pain Stated Complaint: CP-SOB Time Seen by Provider: 04/01/24 16:04 Source: patient Mode of arrival: ambulatory Limitations: no limitations History of Present Illness ED Provider: Dr. Anahi Yee HPI narrative: patient comes to the emergency room complaining of left-sided chest pain. Patient states it started about 30 minutes ago, the lack of sharp chest pain on the left for a few seconds and then resolved. At this time, patient is asymptomatic. Patient states that about 6 months ago she had same issue, went to [facility] in all of her cardiac workup was negative. patient denies any recent illnesses, no abdominal pain. denies fever or chills Related Data Previous Rx's ?Medication ?Instructions ?Recorded oxycodone-acetaminophen 5 mg-325 1 tab PO Q6H PRN pain (scale score 12/29/21 mg tablet (Endocet) 7-10) #15 tabs ibuprofen 600 mg tablet 600 mg PO Q8H PRN fever or pain 04/01/24 #20 tabs Allergies Allergy/AdvReac Type Severity Reaction Status Date / Time No Known Allergies Allergy Verified 04/01/24 14:56 [No Known Allergies*] Review of Systems 2 Review of Systems: Constitutional : No Weight loss, No Fever, No Chills, No Night Sweats, No Fatigue, No Malaise ENT/Mouth : No Hearing loss, No Ear Pain, No Nasal Congestion, No Sinus Pain, No Hoarseness, No sore throat, No Rhinorrhea, No Swallowing Difficulty Eyes: No Eye Pain, No Swelling, No Redness, No Foreign Body, No Discharge, No Vision Changes Cardiovascular : No Chest Pain, No SOB, No Dyspnea on Exertion, No Orthopnea, No Edema, No Palpitations Respiratory : No Cough, No Sputum, No Wheezing, No Smoke Exposure, No Dyspnea Gastrointestinal : No Nausea, No Vomiting, No Diarrhea, No Constipation, No abdominal Pain, No Hematochezia, No Melena Genitourinary : no irregular bleeding, No Dysuria, No Urinary Frequency, No Hematuria, No Urinary Incontinence, No Urgency, No Flank Pain, No Urinary Flow Changes, No Hesitancy Musculoskeletal : No joint pain, No Myalgias, No Joint Swelling Skin : No Skin Lesions, No rash Neuro : No Weakness, No Numbness, No Paresthesias, No Loss of Consciousness, No Dizziness, No Headache Psych : No Anxiety/Panic, No Depression, No SI/HI/AH/VH, No Social Issues, Heme/Lymph: No Bruising, No Bleeding,No Lymphadenopathy Endocrine : No Polyuria, No Polydipsia, No Temperature Intolerance [facility] Past Medical History Medical History (Updated 04/01/24 @ 16:26 by Anahi Yee MD) Biliary dyskinesia Acalculous cholecystitis Surgical History (Updated 07/26/21 @ 08:25 by uBtch Mccurdy MD) S/P laparoscopic cholecystectomy (07/25/21) Social History Social History Household Members: Family Housing: Apartment Do you presently have visiting nurse or other home services: No Comment: rn Patient Tobacco Use Status: Never used Tobacco Advance Directives: No Advance Directives Information Provided: No service: No Current occupational status: employed Physical Exam 2 Vital Signs: Vital Signs: Last Vital Signs Temp 98.2 F 04/01/24 14:54 Pulse 87 04/01/24 14:54 Resp 24 H 04/01/24 14:54 BP 135/82 04/01/24 14:54 Pulse Ox 100 04/01/24 14:54 O2 Del Method Room Air 04/01/24 14:54 BMI result Body Mass Index 22.3 Const: Other: Appearance: Alert. Oriented X3. No acute distress. well-appearing Eyes: Pupils equal, round and reactive to light. ENT: Pharynx normal. Neck: Normal inspection. Neck supple. No lymph nodes noted. No crepitus CVS: Normal heart rate and rhythm. Pulses normal. Normal S1 and S2 Respiratory: No respiratory distress. Breath sounds normal. No Wheezing. No rales Abdomen: Soft and nontender. No rigidity. No distention. Skin: Skin warm and dry. Normal skin color. Normal skin turgor. Extremities: No lower extremity edema. No Lacerations. No Rash Neuro: Oriented X 3. No motor deficit. No sensory deficit. Moving all extremities. No slurred speech. CN 2 through 12 grossly intact Psych: calm, cooperative, normal affect Course Course Course Narrative: This is an RME: Additional HPI, ROS, PE not included below will be deferred to primary provider. RME assessment and note performed by: Simin John PA-C This is a 33-year-old female who presents emergency department with complaints of chest pain, shortness for breath which started 30 minutes ago. Plan: Labs, EKG, chest x-ray, viral swabs, further ER evaluation needed. Medical Decision Making Medical Decision Making [facility] Narrative: my interpretation of EKG: Normal sinus rhythm, heart rate 79, no ST segment depression or elevation, no T-wave inversion, QTC 458 - my interpretation of labs: Hematology at baseline. Normal coagulation times, chemistry within normal limits, normal troponin, normal lipase, serology positive for COVID-19 - patient's blood pressure 135/82, heart rate 87, oxygen saturation 100% on room air. Patient was ambulated in her room, oxygen stayed above 98% - my interpretation of x-ray, no obvious infiltrates - wells criteria score for pulmonary embolism is 0 Differential Diagnosis Differential Diagnoses: The differential diagnosis associated with the presentation includes ( costochondritis, viral syndrome, anxiety, COVID, flu, RSV) Lab Data [facility] Lab Attestation statement: I reviewed the patient's lab results. 04/01/24 15:08 04/01/24 15:08 Labs: Lab Results 04/01/24 Range/Units 15:08 WBC 10.0 (4.8-10.8) X10*3/uL RBC 4.11 L (4.20-5.50) X10*6/uL Hgb 11.8 L (12.0-16.0) g/dl Hct 36.9 L (37.0-47.0) % MCV 89.8 (80.0-98.0) fL MCH 28.7 (27.0-33.0) pg MCHC 32.0 (31.0-35.0) g/dl RDW 12.9 (11.0-16.0) % Plt Count 203 (160-400) X10*3/uL MPV 11.5 (9.4-12.3) fL Immature Gran % (Auto) 0.3 (0.0-0.4) % Neut % (Auto) 64.4 (45-73) % Lymph % (Auto) 27.1 (20-40) % Monona % (Auto) 6.6 (2-11) % Eos % (Auto) 1.3 (0-4) % Baso % (Auto) 0.3 (0-2) % Lymph # (Auto) 2.7 (1.2-4.9) X10*3/uL Monona # (Auto) 0.7 (0.1-1.2) X10*3/uL Eos # (Auto) 0.1 (0.0-0.4) X10*3/uL Baso # (Auto) 0.0 (0.0-0.2) X10*3/uL Abs Immat Gran (auto) 0.03 (0.00-0.03) X10*3/uL Absolute Neuts (auto) 6.4 (2.0-8.3) x10*3/uL Absolute Nucleated RBC 0.000 (0.0-0.012) X10*3/uL Nucleated RBC % (auto) 0.0 (0.0-0.2) /100WBC PT 12.9 (11.1-13.3) SEC INR 1.1 (0.9-1.1) Sodium 138 (135-145) mmol/L Potassium 3.9 (3.3-5.1) mmol/L Chloride 105 (96-108) mmol/L Carbon Dioxide 24 (22-29) mmol/L Anion Gap 13 (12-20) BUN 17 H (9-16) mg/dL Creatinine 0.87 (0.5-1.4) mg/dL Estim Creat Clear Calc 79.4 Estimated GFR > 60 Random Glucose 107 (60-115) mg/dL Calcium 9.3 (8.4-10.2) mg/dL Total Bilirubin 0.3 (0.0-1.0) mg/dL Direct Bilirubin 0.1 (0.0-0.5) mg/dL AST 74 H (5-31) U/L ALT 125 H (0-31) U/L Alkaline Phosphatase 101 (39-117) U/L Troponin I High Sens < 2.7 (<3.5-17.0) ng/L Total Protein 7.5 (6.5-8.0) g/dL Albumin 4.1 (3.5-5.0) g/dL Lipase 21 (8-78) U/L Influenza Type A (PCR) NEGATIVE (Negative) Influenza Type B (PCR) NEGATIVE (Negative) RSV RNA Qual (PCR) NEGATIVE (Negative) SARS-CoV-2 RNA (RT-PCR) POSITIVE A (Negative) Independent Interpretation I performed an independent interpretation of an: EKG and Plain X-Ray Radiology Impression Discussion of test interpretation with radiology: I have reviewed the radiologist's reading. (No acute finding. The lung santiago are felt to be grossly clear. There is no infiltrate or effusion. The cardiac silhouette is within normal limits. The hilar regions do not appear pathologically enlarged. Scoliosis noted in the spine convex left apex at T5 XR/XR chest 2V IMP) Critical Care Time Critical Care Time Critical Care Time: No Discharge Plan Discharge Clinical Impression: COVID-19, Atypical chest pain Patient Disposition: Home, Self-Care Instructions: Chest Pain (ED), COVID-19 (Coronavirus Disease 2019) (ED) Additional Instructions: Please follow-up with your primary care physician tomorrow. If you have any worsening or new symptoms, please return to the emergency room or call 911 Prescriptions: New ibuprofen 600 mg tablet 600 mg PO Q8H PRN (Reason: fever or pain) Qty: 20 0RF No Action oxycodone-acetaminophen [Endocet] 5-325 mg tablet 1 tab PO Q6H PRN (Reason: pain (scale score 7-10)) Qty: 15 0RF Print Language: Indonesian
[2024-04-01 15:22] LABS: MANUAL DIFF FLAG NO
[2024-04-01 15:24] LABS: Basophils Percent Auto 0.3 % (0-2); Eosinophils Absolute Auto 0.1 X10*3/uL (0.0-0.4); Eosinophils Percent Auto 1.3 % (0-4); Hematocrit 36.9 % (37.0-47.0); Hemoglobin 11.8 g/dl (12.0-16.0); Imm Gran Abs Auto 0.03 X10*3/uL (0.00-0.03); Imm Gran Pct Auto 0.3 % (0.0-0.4); Lymphocytes Absolute Auto 2.7 X10*3/uL (1.2-4.9); Lymphocytes Percent Auto 27.1 % (20-40); Mean Corpuscular Hemoglobin 28.7 pg (27.0-33.0); Mean Corpuscular Volume 89.8 fL (80.0-98.0); Mean Platelet Volume 11.5 fL (9.4-12.3); Monocytes Absolute Auto 0.7 X10*3/uL (0.1-1.2); Monocytes Percent Auto 6.6 % (2-11); Neutrophils Absolute Auto 6.4 x10*3/uL (2.0-8.3); Neutrophils Percent Auto 64.4 % (45-73); Platelet Count 203 X10*3/uL (160-400); Red Blood Count 4.11 X10*6/uL (4.20-5.50); Red Cell Distribution Width 12.9 % (11.0-16.0)
[2024-04-01 15:32] LABS: INTERNATIONAL NORM RATIO 1.1 (0.9-1.1); Prothrombin Time 12.9 SEC (11.1-13.3)
[2024-04-01 15:37] LABS: Alanine Aminotransferase 125 U/L (0-31); Albumin Level 4.1 g/dL (3.5-5.0); Alkaline Phosphatase 101 U/L (39-117); Anion Gap 13 (12-20); Aspartate Amino Transferase 74 U/L (5-31); Bilirubin Direct 0.1 mg/dL (0.0-0.5); Bilirubin Total 0.3 mg/dL (0.0-1.0); Blood Urea Nitrogen 17 mg/dL (9-16); Calcium 9.3 mg/dL (8.4-10.2); Carbon Dioxide 24 mmol/L (22-29); Chloride 105 mmol/L (96-108); Creatinine Clr Calc Pharmacy 79.4; Estimated Glomerular Filt Rate > 60; Glucose Random 107 mg/dL (60-115); Lipase 21 U/L (8-78); Potassium 3.9 mmol/L (3.3-5.1); Sodium 138 mmol/L (135-145); Total Protein 7.5 g/dL (6.5-8.0)
[2024-04-01 15:45] LABS: Troponin-I High Sensitivity < 2.7 ng/L (<3.5-17.0)
--- OUTSIDE RECORDS SUMMARY | 2024-04-01 15:59 | XMS_ITS | Continuity of Care Document ---
Author Organization [facility] Address [address] [place] [address]- Care Team Providers Care Water Treatment Plant Mechanic Name Role Phone Not on Staff, PCP Primary Care Physician Unavail able Encounter [facility] Date(s): 08/25/19 - 09/04/19 [facility] [address] [place] [address]- [facility] Attending Physician: Wes Ross Admitting Physician: Wes Ross Referring Physician: Admtr, ArAlin Allergies, Adverse Reactions, Alerts No Known Medication Allergies
--- OUTSIDE RECORDS SUMMARY | 2024-04-01 15:59 | XMS_ITS | Continuity of Care Document ---
Author Organization [facility] ter Address [address] [place] [address]- Care Team Providers Care Spray Gun Repairer Name Role Phone Not on Staff, PCP Primary Care Physician Unavail able Encounter [facility] Date(s): 01/02/23 - 01/02/[address] [address]- Encounter Diagnosis Abdominal pain(Final) - 01/02/23 Discharge Disposition: A-D/C Home Attending Physician: Tess Lee MD Admitting Physician: Tess Lee MD Referring Physician: Not on Staff, Referring MD Allergies, Adverse Reactions, Alerts No Known Medication Allergies Results Radiology Reports * Exam Date Time Procedure Performing Provider Status 01/02/23 4:[address] Abd/Pelvis W/ IV Contrast Only Nani Blanca; Shalonda (Verified) Notes: (CT Abd/Pelvis W/ IV Contrast Only) Reason For Exam: LLQ abdominal pain;Other: RESULT: CT Abd/Pelvis W/ IV Contrast Only CT Abd/Pelvis W/ IV Contrast Only Hx of Present Illness: abd pain; Reason: Other:; LLQ abdominal pain; Clinical Question(s): Appendicitis; Order Comment: TECHNIQUE: Spiral CT through the abdomen and pelvis with IV contrast formatted in 3 planes. 75 cc of Omnipaque 300 was administered intravenously. This study was performed without oral contrast. Weight-based protocol using automatic tube modulation was used to optimize exposure parameters. CTDIvol Body: 10.70 mGy, DLP Body: 585 mGy*cm. COMPARISON: No relevant FINDINGS: Bilateral breast implants are seen. The heart is normal in size. There is no pericardial effusion. The visualized lung bases are unremarkable. The liver is unremarkable. The gallbladder is surgically absent. The spleen, pancreas, and adrenal glands are unremarkable. Symmetric renal contrast enhancement is demonstrated bilaterally. A left upper pole calyceal diverticulum with a nonobstructing 0.5 cm calculus is seen (image 36). There is a nonobstructing 0.3 cm left lower pole calculus. No masses are seen within either kidney. There is no hydronephrosis. The bladder is decompressed and cannot be assessed. Prominent parametrial vessels are likely related to thephase of the patient's menstrual cycle. The appendix is unremarkable. There is no bowel obstruction. There is no free air, free fluid, or lymphadenopathy. The osseous structures are unremarkable. IMPRESSION: There is no acute abnormality. WSN: [id number] Ordering Physician: Jamee Rdz Dictated By: Brandy Ely MD Dictated Date/Time: 01/02/23 4:54 pm Reviewed By: Brandy Ely MD Signed By: Brandy Ely MD Signed Date/Time: 01/02/23 4:54 pm Transcribed By: JOSE C Transcribed Date/Time: 01/02/23 4:52 pm * Exam Date Time Procedure Performing Provider Status 01/02/23 1:27 PM US RUQ Horn , Penny; Auth (Ve rified) Notes: (US RUQ) Reason For Exam: Abdominal Pain;Other: RESULT: US RUQ US RUQ Hx of Present Illness: abd pain; Reason: Other:; Abdominal Pain; Clinical Question(s): Cholecystitis COMPARISON: None. FINDINGS: Liver: Normal in size and echotexture. No focal lesion. Smooth hepatic contour. Main portal vein patent with normal hepatopetal direction of flow. Gallbladder: Status post cholecystectomy. Biliary Tree: No intrahepatic or extrahepatic bile duct dilation is identified. Common duct measures: 0.6 cm. Pancreas: Partially obscured by overlying bowel gas. No abnormality in the visualized portions of the pancreas. Right kidney: 9.8 cm in length. Normal parenchymal echotexture and thickness. No hydronephrosis, stone or mass. IMPRESSION: Normal right upper quadrant ultrasound. Status post cholecystectomy. I have personally reviewed the images and I agree with this report. WSN: [id number] Ordering Physician: Jamee Rdz Dictated By: Rudi Brown MD Dictated Date/Time: 01/02/23 3:29 pm Reviewed By: Khari Michelle MD Signed By: Khari Michelle MD Signed Date/Time: 01/02/23 3:34 pm Transcribed By: CSB Transcribed Date/Time: 01/02/23 2:14 pm * Exam Date Time Procedure Performing Provider Status 01/02/23 12:13 PM Chest 2 Views Frontal and Lat Apoorva Mckay; Shalonda (Verified) Notes: (Chest 2 Views Frontal and Lat) Reason For Exam: Shortness of Breath, Fever;Other: RESULT: Chest 2 Views Frontal and Lat Chest 2 Views Frontal and Lat Reason: Shortness of Breath, Fever; Clinical Question(s): Pneumonia COMPARISON: 12/09/2021. FINDINGS: LUNGS AND PLEURA: Clear lungs. Normal pulmonary vascularity. No pleural effusion. No pneumothorax. HEART, MEDIASTINUM AND KELLEY: Heart is normal in size. Normal mediastinal and hilar contour. BONES AND SOFT TISSUES: No acute abnormality. Right upper quadrant surgical clips suggesting previous cholecystectomy. IMPRESSION: No acute abnormality. WSN: [id number] Ordering Physician: Tess Lee Dictated By: Dandre Mrate MD Dictated Date/Time: 01/02/23 12:15 p Reviewed By: Dandre Marte MD Signed By: Dandre Marte MD Signed Date/Time: 01/02/23 12:15 pm Transcribed By: JOSE C Transcribed Date/Time: 01/02/23 12:14 pm Vital Signs Most recent to oldest [Reference Range]: 1 2 3 Height 163 cm (01/02/23 3:19 PM) 163 cm (01/02/23 12:16 PM) 163 cm (01/02/23 10:46 AM) Weight 68.5 kg (01/02/23 3:19 PM) 68.5 kg (01/02/23 12:16 PM) Oxygen Saturation [94-100 %] 98 % (01/02/23 5:43 PM) 100 % (01/02/23 4:25 PM) 100 % (01/02/23 3:19 PM) Pulse Rate [55-90 bpm] 79 bpm (01/02/23 5:43 PM) 72 bpm (01/02/23 4:25 PM) 78 bpm (01/02/23 3:19 PM) Body Mass Index [18.5-24.99 kg/m2] 25.78 kg/m2 *H* (01/02/23 3:19 PM) Blood Pressure [90-138/55-84 mm Hg] 103/71mm Hg (01/02/23 5:43 PM) 119/78mm Hg (01/02/23 4:25 PM) 109/75mm Hg (01/02/23 3:19 PM) Respiratory Rate [16-30 br/min] 18 br/min (01/02/23 5:43 PM) 18 br/min (01/02/23 4:25 PM) 20 br/min (01/02/23 3:19 PM) Temperature [96.8-100.4 DegF] 97.9 DegF (01/02/23 5:43 PM) 97.3 DegF (01/02/23 4:25 PM) 98.8 DegF (01/02/23 3:19 PM) Mode of Delivery (Oxygen) Room air (01/02/23 5:43 PM) Room air (01/02/23 4:25 PM) Room air (01/02/23 3:19 PM) Blood pressure sites Arm, right (01/02/23 5:43 PM) Arm, right (01/02/23 4:25 PM) Arm, right (01/02/23 3:19 PM) Temperature Route Oral (01/02/23 5:43 PM) Oral (01/02/23 4:25 PM) Oral (01/02/23 3:19 PM) Dry Weight 68.5 kg (01/02/23 3:19 PM) 68.5 kg (01/02/23 12:16 PM) 68.5 kg (01/02/23 10:46 AM) Weight Obtained Via Patient/family state d (01/02/23 10:46 AM) Dry Weight Obtained Via scale (01/02/23 10:46 AM) EKG study * Event Display: ECG 12-Lead Authored Date: Please click on pdf link to open report * Event Display: ECG 12-Lead Authored Date: Ventricular Rate: 85 BPM Atrial Rate: 85 BPM P-R Interval: 118 ms QRS Duration: 76 ms Q-T Interval: 368 ms QTC Calculation(Bazett): 437 ms P Bronaugh: 42 degrees R Bronaugh: 48 degrees T Bronaugh: 29 degrees Normal sinus rhythm Normal ECG No previous ECGs available Confirmed by IRVIN ARRIAZA MD ([id number]) on 01/02/2023 4:46:43 PM Assonet: IRVIN ARRIAZA MD Laboratory * [facility] , CIS S: TRANSCRIBE Dandre Marte MD: VERIFY Event Display: Result: Authored Date: [id number] Chest 2 Views Frontal and Lat Reason: Shortness of Breath, Fever; Clinical Question(s): Pneumonia COMPARISON: 12/09/2021. FINDINGS: LUNGS AND PLEURA: Clear lungs. Normal pulmonary vascularity. No pleural effusion. No pneumothorax. HEART, MEDIASTINUM AND KELLEY: Heart is normal in size. Normal mediastinal and hilar contour. BONES AND SOFT TISSUES: No acute abnormality. Right upper quadrant surgical clips suggesting previous cholecystectomy. IMPRESSION: No acute abnormality. WSN: [id number] Ordering Physician: Tess Lee Dictated By: Dandre Marte MD Dictated Date/Time: 01/02/23 12:15 p Reviewed By: Dandre Marte MD Signed By: Dandre Marte MD Signed Date/Time: 01/02/23 12:15 pm Transcribed By: CSB Transcribed Date/Time: 01/02/23 12:14 pm US Abdomen RUQ * [facility] , CIS S: TRANSCRIBE Viviana DENNISON, Khari: VERIFY Rudi Brown MD: SIGN Event Display: Result: Authored Date: [id number] US RUQ Hx of Present Illness: abd pain; Reason: Other:; Abdominal Pain; Clinical Question(s): Cholecystitis COMPARISON: None. FINDINGS: Liver: Normal in size and echotexture. No focal lesion. Smooth hepatic contour. Main portal vein patent with normal hepatopetal direction of flow. Gallbladder: Status post cholecystectomy. Biliary Tree: No intrahepatic or extrahepatic bile duct dilation is identified. Common duct measures: 0.6 cm. Pancreas: Partially obscured by overlying bowel gas. No abnormality in the visualized portions of the pancreas. Right kidney: 9.8 cm in length. Normal parenchymal echotexture and thickness. No hydronephrosis, stone or mass. IMPRESSION: Normal right upper quadrant ultrasound. Status post cholecystectomy. I have personally reviewed the images and I agree with this report. WSN: [id number] Ordering Physician: Jamee Rdz Dictated By: Rudi Brown MD Dictated Date/Time: 01/02/23 3:29 pm Reviewed By: Khari Michelle MD Signed By: Khari Michelle MD Signed Date/Time: 01/02/23 3:34 pm Transcribed By: JOSE C Transcribed Date/Time: 01/02/23 2:[address] Abdomen and Pelvis W contrast IV * [facility] , CIS S: TRANSCRIBE Brandy Ely MD: VERIFY Event Display: Result: Authored Date: [id number] CT Abd/Pelvis W/ IV Contrast Only Hx of Present Illness: abd pain; Reason: Other:; LLQ abdominal pain; Clinical Question(s): Appendicitis; Order Comment: TECHNIQUE: Spiral CT through the abdomen and pelvis with IV contrast formatted in 3 planes. 75 cc of Omnipaque 300 was administered intravenously. This study was performed without oral contrast. Weight-based protocol using automatic tube modulation was used to optimize exposure parameters. CTDIvol Body: 10.70 mGy, DLP Body: 585 mGy*cm. COMPARISON: No relevant FINDINGS: Bilateral breast implants are seen. The heart is normal in size. There is no pericardial effusion. The visualized lung bases are unremarkable. The liver is unremarkable. The gallbladder is surgically absent. The spleen, pancreas, and adrenal glands are unremarkable. Symmetric renal contrast enhancement is demonstrated bilaterally. A left upper pole calyceal diverticulum with a nonobstructing 0.5 cm calculus is seen (image 36). There is a nonobstructing 0.3 cm left lower pole calculus. No masses are seen within either kidney. There is no hydronephrosis. The bladder is decompressed and cannot be assessed. Prominent parametrial vessels are likely related to thephase of the patient's menstrual cycle. The appendix is unremarkable. There is no bowel obstruction. There is no free air, free fluid, or lymphadenopathy. The osseous structures are unremarkable. IMPRESSION: There is no acute abnormality. WSN: [id number] Ordering Physician: Jamee Rdz Dictated By: Brandy Ely MD Dictated Date/Time: 01/02/23 4:54 pm Reviewed By: Brandy Ely MD Signed By: Brandy Ely MD Signed Date/Time: 01/02/23 4:54 pm Transcribed By: JOSE C Transcribed Date/Time: 01/02/23 4:52 pm Patient Care team information Care Team Personnel Name: Not on Staff, PCP Position: [facility] Physician (General Medicine) Member Role: PCP Name: Sonal Mckeon RN Position: [facility] ED RN W/OE and Tasks Member Role: Patient Care Provider Name: Tess Lee MD Position: [facility] ED Medicine MD Member Role: Admitting Physician Address: Address: [address] [place] [address] Name: Jamee Ray Position: [facility] Associate Professional Member Role: ED Physician Supercharger Mechanic Address: Address: [address] [place] [address] Name: Zonia Mera Position: [facility] ED TA [facility] Member Role: Camera Technician Care Team Related Persons Name: FE ROCA Address: [address] [address]
[2024-04-01 16:08] LABS: Influenza A PCR NEGATIVE (Negative); Influenza B PCR NEGATIVE (Negative); Resp Syncy Virus RNA Qual PCR NEGATIVE (Negative); SARS COV2 PCR INHOUSE POSITIVE (Negative)
[2024-04-01 17:33] VITALS: BP 132/80; PULSE 80; RESP 16; TEMP 36.8; O2SAT 100
== END 2024-04-01 17:34 | disposition home or self-care (01) ==
PROVIDERS: Physician Assistant Medical; Emergency Provider Emergency Medicine
DX: U07.1 COVID-19 (principal); R07.9 Chest pain, unspecified
CPT/HCPCS: 0241U; 71046; 80048; 80076; 83690; 84484; 85025; 85610; 93005; 99283

== ENCOUNTER 2024-04-09 08:57 | Outpatient (REF) | payer MEDICAID, SELFPAY ==
[2024-04-09 11:36] LABS: Alanine Aminotransferase 338 U/L (0-31); Albumin Level 4.1 g/dL (3.5-5.0); Alkaline Phosphatase 161 U/L (39-117); Aspartate Amino Transferase 64 U/L (5-31); Bilirubin Direct 0.2 mg/dL (0.0-0.5); Bilirubin Total 0.4 mg/dL (0.0-1.0); Total Protein 7.5 g/dL (6.5-8.0)
== END 2024-04-09 08:58 | disposition home or self-care (01) ==
LOC: HO.HHCL 08:57
PROVIDERS: Visit Provider Hospitalist
DX: B17.9 Acute viral hepatitis, unspecified (principal)
CPT/HCPCS: 36415; 80076

== ENCOUNTER 2024-04-14 10:04 | Outpatient (REF) | payer MEDICAID, SELFPAY ==
[2024-04-14 15:20] LABS: Alanine Aminotransferase 114 U/L (0-31); Albumin Level 4.1 g/dL (3.5-5.0); Alkaline Phosphatase 125 U/L (39-117); Aspartate Amino Transferase 36 U/L (5-31); Bilirubin Direct 0.2 mg/dL (0.0-0.5); Bilirubin Total 0.4 mg/dL (0.0-1.0); Total Protein 7.4 g/dL (6.5-8.0)
== END 2024-04-14 10:05 | disposition home or self-care (01) ==
LOC: HO.CHCLDS 10:04
PROVIDERS: Visit Provider Student in an Organized Health Care Education/Training Program
DX: B17.9 Acute viral hepatitis, unspecified (principal)
CPT/HCPCS: 36415; 80076

== ENCOUNTER 2024-04-24 14:59 | Emergency (ER) | payer MEDICAID, SELFPAY ==
[2024-04-24 15:05] VITALS: BP 109/68; PULSE 78; RESP 18; TEMP 37.3; O2SAT 98; BMI 24.1
--- NOTE | 2024-04-24 15:05 | ED_ITS ---
HPI - General Adult General Chief complaint: General Medical Stated complaint: multiple complaints Related Data Previous Rx's ?Medication ?Instructions ?Recorded oxycodone-acetaminophen 5 mg-325 1 tab PO Q6H PRN pain (scale score 07/26/21 mg tablet (Endocet) 7-10) #15 tabs ibuprofen 600 mg tablet 600 mg PO Q8H PRN fever or pain 04/01/24 #20 tabs Allergies Allergy/AdvReac Type Severity Reaction Status Date / Time No Known Allergies Allergy Verified 04/24/24 15:07 [No Known Allergies*] [facility] Past Medical History Medical History (Updated 05/11/24 @ 16:33 by SHLOMO Pires) Biliary dyskinesia Acalculous cholecystitis Surgical History (Updated 07/26/21 @ 08:25 by Butch Mccurdy MD) S/P laparoscopic cholecystectomy (07/25/21) Social History Social History Household Members: Family Housing: Apartment Do you presently have visiting nurse or other home services: No Comment: rn Patient Tobacco Use Status: Never used Tobacco Advance Directives: No Advance Directives Information Provided: No Do you have a plan to hurt others: No Plan service: No Current occupational status: employed Physical Exam ED Vital Signs: BMI result Body Mass Index 24.1 Course Course Course Narrative: This is a Rapid Medical Exam performed in triage by Jes Wright PA-C. Full HPI, ROS and PE to be performed by primary ED provider. 33 yo F w/pmhx acalculous cholecystitis s/p cholecystectomy, biliary dyskenisia presenting to the ED c/o was recently seen at [facility] on 04/04 diagnosed with acute hepatitis, presenting to the ED c/o vaginal bleeding and ?prolapse (feels ball/insides coming out) x yesterday. Also reports constipation x 1 week. PE: abdomen soft w/mild ttp to RLQ. no guarding/rigidity. nondistended Plan: labs, UA Medical Decision Making Lab Data 04/24/24 15:58 04/24/24 15:58 Labs: Lab Results 04/24/24 Range/Units 15:58 WBC 7.6 (4.8-10.8) X10*3/uL RBC 4.28 (4.20-5.50) X10*6/uL Hgb 12.4 (12.0-16.0) g/dl Hct 37.8 (37.0-47.0) % MCV 88.3 (80.0-98.0) fL MCH 29.0 (27.0-33.0) pg MCHC 32.8 (31.0-35.0) g/dl RDW 12.9 (11.0-16.0) % Plt Count 218 (160-400) X10*3/uL MPV 11.2 (9.4-12.3) fL Immature Gran % (Auto) 0.3 (0.0-0.4) % Neut % (Auto) 56.9 (45-73) % Lymph % (Auto) 32.3 (20-40) % [place] % (Auto) 8.4 (2-11) % Eos % (Auto) 1.6 (0-4) % Baso % (Auto) 0.5 (0-2) % Lymph # (Auto) 2.5 (1.2-4.9) X10*3/uL [place] # (Auto) 0.6 (0.1-1.2) X10*3/uL Eos # (Auto) 0.1 (0.0-0.4) X10*3/uL Baso # (Auto) 0.0 (0.0-0.2) X10*3/uL Abs Immat Gran (auto) 0.02 (0.00-0.03) X10*3/uL Absolute Neuts (auto) 4.4 (2.0-8.3) x10*3/uL Absolute Nucleated RBC 0.000 (0.0-0.012) X10*3/uL Nucleated RBC % (auto) 0.0 (0.0-0.2) /100WBC PT 12.2 (10.9-12.4) SEC INR 1.0 (0.9-1.1) Sodium 138 (135-145) mmol/L Potassium 4.3 (3.3-5.1) mmol/L Chloride 109 H (96-108) mmol/L Carbon Dioxide 23 (22-29) mmol/L Anion Gap 10 L (12-20) BUN 10 (9-16) mg/dL Creatinine 0.78 (0.5-1.4) mg/dL Estim Creat Clear Calc 92.3 Estimated GFR > 60 Random Glucose 92 (60-115) mg/dL Calcium 9.4 (8.4-10.2) mg/dL Magnesium 2.0 (1.6-2.6) mg/dL Total Bilirubin 0.3 (0.0-1.0) mg/dL Direct Bilirubin 0.1 (0.0-0.5) mg/dL AST 26 (5-31) U/L ALT 43 H (0-31) U/L Alkaline Phosphatase 105 (39-117) U/L Total Protein 7.8 (6.5-8.0) g/dL Albumin 4.2 (3.5-5.0) g/dL Lipase 21 (8-78) U/L Urine Test NEGATIVE (NEGATIVE) Discharge Plan Discharge Clinical Impression: Vaginal bleeding Patient Disposition: Left W/O Completing Treatment Prescriptions: No Action oxycodone-acetaminophen [Endocet] 5-325 mg tablet 1 tab PO Q6H PRN (Reason: pain (scale score 7-10)) Qty: 15 0RF ibuprofen 600 mg tablet 600 mg PO Q8H PRN (Reason: fever or pain) Qty: 20 0RF Discharge Date/Time: 04/24/24 20:57
[2024-04-24 16:04] LABS: MANUAL DIFF FLAG NO
[2024-04-24 16:08] LABS: Basophils Percent Auto 0.5 % (0-2); Eosinophils Absolute Auto 0.1 X10*3/uL (0.0-0.4); Eosinophils Percent Auto 1.6 % (0-4); Hematocrit 37.8 % (37.0-47.0); Hemoglobin 12.4 g/dl (12.0-16.0); Imm Gran Abs Auto 0.02 X10*3/uL (0.00-0.03); Imm Gran Pct Auto 0.3 % (0.0-0.4); Lymphocytes Absolute Auto 2.5 X10*3/uL (1.2-4.9); Lymphocytes Percent Auto 32.3 % (20-40); Mean Corpuscular HGB Conc 32.8 g/dl (31.0-35.0); Mean Corpuscular Volume 88.3 fL (80.0-98.0); Mean Platelet Volume 11.2 fL (9.4-12.3); Monocytes Absolute Auto 0.6 X10*3/uL (0.1-1.2); Monocytes Percent Auto 8.4 % (2-11); Neutrophils Absolute Auto 4.4 x10*3/uL (2.0-8.3); Neutrophils Percent Auto 56.9 % (45-73); Platelet Count 218 X10*3/uL (160-400); Red Blood Count 4.28 X10*6/uL (4.20-5.50); Red Cell Distribution Width 12.9 % (11.0-16.0); UPreg QC Valid YES; Urine Pregnancy NEGATIVE (NEGATIVE); White Blood Count 7.6 X10*3/uL (4.8-10.8)
[2024-04-24 16:11] LABS: Prothrombin Time 12.2 SEC (10.9-12.4)
[2024-04-24 16:20] LABS: Alanine Aminotransferase 43 U/L (0-31); Albumin Level 4.2 g/dL (3.5-5.0); Alkaline Phosphatase 105 U/L (39-117); Anion Gap 10 (12-20); Aspartate Amino Transferase 26 U/L (5-31); Bilirubin Direct 0.1 mg/dL (0.0-0.5); Bilirubin Total 0.3 mg/dL (0.0-1.0); Blood Urea Nitrogen 10 mg/dL (9-16); Calcium 9.4 mg/dL (8.4-10.2); Carbon Dioxide 23 mmol/L (22-29); Chloride 109 mmol/L (96-108); Creatinine Clr Calc Pharmacy 92.3; Estimated Glomerular Filt Rate > 60; Glucose Random 92 mg/dL (60-115); Lipase 21 U/L (8-78); Potassium 4.3 mmol/L (3.3-5.1); Sodium 138 mmol/L (135-145); Total Protein 7.8 g/dL (6.5-8.0)
== END 2024-04-24 20:57 | disposition left against medical advice (07) ==
PROVIDERS: Physician Assistant; Emergency Provider Emergency Medicine
DX: N93.9 Abnormal uterine and vaginal bleeding, unspecified (principal)
CPT/HCPCS: 36415; 80048; 80076; 81025; 83690; 83735; 85025; 85610; 99282; 99283

== ENCOUNTER 2024-06-18 08:50 | Outpatient (REF) | payer MEDICAID, SELFPAY ==
[2024-06-18 11:48] LABS: Alanine Aminotransferase 30 U/L (0-31); Albumin Level 3.9 g/dL (3.5-5.0); Alkaline Phosphatase 68 U/L (39-117); Aspartate Amino Transferase 26 U/L (5-31); Bilirubin Direct 0.1 mg/dL (0.0-0.5); Bilirubin Total 0.4 mg/dL (0.0-1.0); Total Protein 7.1 g/dL (6.5-8.0)
== END 2024-06-18 08:51 | disposition home or self-care (01) ==
LOC: HO.HHCL 08:50
PROVIDERS: Visit Provider Student in an Organized Health Care Education/Training Program
DX: B17.9 Acute viral hepatitis, unspecified (principal)
CPT/HCPCS: 36415; 80076

== ENCOUNTER 2024-12-24 09:51 | Outpatient (REF) | payer MEDICAID, SELFPAY ==
--- OUTSIDE RECORDS SUMMARY | 2024-12-24 10:13 | XMS_ITS | Encounter Summary ---
Author Organization [employer] Address [address] [place] [address] Care Team Providers Care Professor Of Communication Name Role Phone Josefina Murray MD Primary Care Provider [phone] Encounter Details Date Type Department Care Team (Late st Contact Info) Description 08/13/2024 Orders Only [facility] [address] [place] [address] Provider, MD Najma Social History Tobacco Use Types Packs/Day Years Used Date Smoking Tobacco: Never Smokeless Tobacco: Never Alcohol Use Standard Drinks/Week Comments Never 0 (1 standard drink = 0.6 oz pur e alcohol) Depression Answer Date Recorded Patient Health Questionnaire-9 Score 7 06/05/2024 Patient Health Questionnaire-9 Score 7 06/05/2024 Last PHQ-9: Questionnaire Data Not on file 1 08/05/2023 Housing Stability Answer Date Recorded What is your housing situation today? I have krystalarmando yates 06/01/[address] you li ve. Do you have problems with any of the following? None of the above 06/01/2024 Food Insecurity Answer Date Recorded Within the past 12 months, y ou worried that your food would run out before you got money to buy more: Never True 06/01/2024 Within the past 12 months,th e food you bought just didn't last and you didn't have enough money to get more: Never True 10/2023 Transportation Answer Date Recorded In the past 12 months, has l ack of transportation kept you from medical appts, meetings, work or from getting things needed for daily living? No 06/01/2024 Utilities Answer Date Recorded In the past 12 months, has t he electric, gas, oil or water company threatened to shut off services in your home? No 06/01/2024 Depression Answer Date Recorded Patient Health Questionnaire-2 Score 0 06/05/2024 Internet Access Answer Date Recorded Internet Access Q1 Yes 06/01/2024 Internet Access Q2 Not on file 06/01/2024 Comments No Sex and Gender Information Value Date Recorded Sex Assigned at Female 05/28/2022 10:36 AM EDT Legal Sex Female 10:36 AM EDT Gender Identity Female 05/28/2022 10:36 AM EDT Sexual Orientation Straight 05/28/2022 10 :36 AM EDT documented as of this encounter Plan of Treatment Not on file documented as of this encounter Procedures Procedure Name Priority Date/Time Associated Diagnosis Comments US BREAST LT LIMITED PRE POST Routine 08/12/2024 11:00 AM EST documented in this encounter Results * US BREAST LT LIMITED PRE POST (08/12/2024 11:00 AM EST) Anatomical Region Laterality Modality Abdomen Ultrasound us Historical Provider MD MERCEDES US PROCEDURES Final R esult documented in this encounter Visit Diagnoses Not on filedocumented in this encounter Additional Health Concerns Assessment Noted Time PHQ-9 Depression Total Score: 7 06/05/20 24 10:22 AM EST documented as of this encounter Care Teams Professor Of Communication Relationship Specialty Start Date End Date Josefina Murray MD [address] [place] [id number] PCP - General Family Medicine 04/06/24 documented as of this encounter
[2024-12-24 12:27] LABS: Alanine Aminotransferase 18 U/L (0-31); Albumin Level 4.2 g/dL (3.5-5.0); Alkaline Phosphatase 66 U/L (39-117); Anion Gap 10 (12-20); Aspartate Amino Transferase 22 U/L (5-31); Bilirubin Direct 0.2 mg/dL (0.0-0.5); Bilirubin Total 0.5 mg/dL (0.0-1.0); Blood Urea Nitrogen 11 mg/dL (9-16); Calcium 9.1 mg/dL (8.4-10.2); Carbon Dioxide 26 mmol/L (22-29); Chloride 107 mmol/L (96-108); Cholesterol 173 mg/dL (<200); Estimated Glomerular Filt Rate > 60; Glucose Random 87 mg/dL (60-115); HDL Cholesterol 54 mg/dL (>40); LDL Cholesterol Calculated 104 mg/dL (<100); Potassium 3.9 mmol/L (3.3-5.1); Sodium 139 mmol/L (135-145); Total Protein 7.4 g/dL (6.5-8.0); Triglycerides 76 mg/dL (<150)
== END 2024-12-24 09:52 | disposition home or self-care (01) ==
LOC: HO.HHCL 09:51
PROVIDERS: Visit Provider Student in an Organized Health Care Education/Training Program
DX: B17.9 Acute viral hepatitis, unspecified (principal)
CPT/HCPCS: 36415; 80048; 80061; 80076

== ENCOUNTER 2025-01-28 11:59 | Emergency (ER) | payer MEDICAID, SELFPAY ==
--- NOTE | ~2025-01-28 | XR_ITS ---
EXAMINATION: XR CHEST CLINICAL INFORMATION: chest pain COMPARISON: April 01, 2024 TECHNIQUE: Frontal view of the chest was obtained. FINDINGS: No significant abnormality is noted involving the heart, lungs, mediastinum, bony thorax or soft tissues. XR/XR chest 1V IMPRESSION: Unremarkable examination. Electronically signed by: Pavel Iqbal MD 01/28/2025 12:27 PM EDT
[2025-01-28 12:02] VITALS: BP 118/68; PULSE 84; RESP 16; TEMP 36.8; O2SAT 100; BMI 26.6
--- NOTE | 2025-01-28 12:08 | ECG_ITS ---
Test Reason : chest pain Blood Pressure : */* mmHG Vent. Rate : 79 BPM Atrial Rate : 79 BPM P-R Int : 136 ms QRS Dur : 80 ms QT Int : 388 ms P-R-T Axes : 50 51 41 degrees QTcB Int : 444 ms Normal sinus rhythm with sinus arrhythmia Normal ECG When compared with ECG of 01-Apr-2024 14:37, Nonspecific T wave abnormality no longer evident in Anterior leads Referred By: Yasir Londono Electronically Signed By: SAMANTHA OROSCO MD
--- NOTE | 2025-01-28 12:09 | ED.GENADULT ---
HPI - General Adult General Chief complaint: Weakness Stated complaint: Low BP, neck pain, sent by Time Seen by Provider: 01/28/25 12:16 Source: patient and hourly sign language interpreter Mode of arrival: ambulatory Limitations: no limitations History of Present Illness ED Provider: DR. Paiz HPI narrative: 34-year-old female otherwise healthy came in for evaluation after reporting low blood pressure using home blood pressure machine. Patient noted that her blood pressure last night was 90's/50's patient developed chest pain, neck pain, dizziness, headache all symptoms resolved when she is not hypotensive. Patient currently has no symptoms, declined nausea, vomiting, or diarrhea, has been tolerating p.o. intake with good appetite. Patient currently has no headache, no neck pain, no blurry vision, no abdominal pain, no fever, no chills. Blood pressure in the ED is within normal. Related Data Previous Rx's ?Medication ?Instructions ?Recorded oxycodone-acetaminophen 5 mg-325 1 tab PO Q6H PRN pain (scale score 07/26/21 mg tablet (Endocet) 7-10) #15 tabs ibuprofen 600 mg tablet 600 mg PO Q8H PRN fever or pain 04/01/24 #20 tabs Allergies Allergy/AdvReac Type Severity Reaction Status Date / Time No Known Allergies (No Known Allergy Verified 01/28/25 12:11 Allergies*) Review of Systems Review of Systems: All other systems are reviewed and are negative Constitutional: Reports as per HPI and Reports no additional constitutional complaints Eyes: Reports as per HPI and Reports no additional eye complaints Reports system reviewed and no additional complaints, except as documented Cardiovascular: Reports as per HPI and Reports no additional cardiovascular complaints Respiratory: Reports as per HPI and Reports no additional respiratory complaints Gastrointestinal: Reports as per HPI and Reports no additional gastrointestinal complaints Genitourinary: Reports no additional female genitourinary complaints Musculoskeletal: Reports no additional musculoskeletal complaints Skin/Breast: Reports system reviewed and no additional complaints, except as docu Psychiatric: Reports no additional psychiatric complaints Endocrine: Reports no additional endocrine complaints Hematologic/Lymphatic: Reports no additional hematologic/lymphatic complaints Allergic/Immunologic: Reports no additional allergic/immunologic complaints Reports system reviewed and no additional complaints, except as documented and Reports Abnormal speech present. [facility] Past Medical History Medical History Biliary dyskinesia Acalculous cholecystitis Surgical History S/P laparoscopic cholecystectomy (07/25/21) Social History Social History Household Members: Family Housing: Apartment Do you presently have visiting nurse or other home services: No Comment: rn Patient Tobacco Use Status: Never used Tobacco Smoked in Last 30 Days: No Use of substances other than those prescribed or required for medical reasons: No Advance Directives: No Advance Directives Information Provided: Yes Do you have a plan to hurt others: No Plan service: No Current occupational status: employed Physical Exam ED Vital Signs: Vital Signs - 24 hr 01/28/25 12:02 01/28/25 12:27 01/28/25 12:46 Temperature 98.2 F Pulse Rate 84 85 Respiratory Rate 16 17 Blood Pressure 118/68 111/72 124/84 Pulse Oximetry 100 100 98 Oxygen Delivery Method Room Air Room Air Room Air 01/28/25 13:19 01/28/25 13:20 01/28/25 13:20 Temperature Pulse Rate 72 75 73 Respiratory Rate Blood Pressure 106/68 112/70 117/75 Pulse Oximetry Oxygen Delivery Method 01/28/25 15:13 Temperature 98.2 F Pulse Rate 69 Respiratory Rate 17 Blood Pressure 99/61 Pulse Oximetry 97 Oxygen Delivery Method Room Air BMI result Body Mass Index 26.6 Vital signs have been reviewed and appear to be correct. Blood pressure elevated. Heart rate normal. Respiratory rate normal. Temperature normal. Oxygen saturation normal. Appearance: Alert. Oriented X3. No acute distress. Head: Normal external exam. Normocephalic. Atraumatic. No Holley signs noted. No raccoon eyes noted Eyes: PERRLA. EOMI. Conjunctiva and sclera normal. Eyelids normal. ENT: TM's Normal. Pharynx normal. Uvula midline. Moist mucous membranes. No trismus noted. No drooling noted. No muffled voice noted. Neck: Normal inspection. Neck supple. FROM. No adenopathy. Thyroid Normal. No meningeal signs. No neck mass noted. CVS: Normal heart rate and rhythm. Heart sound normal. No murmurs noted. Pulses normal throughout. Respiratory: No respiratory distress. Painless inspiration. Breath sounds normal. No wheezes/rales/rhonchi noted. Chest nontender. No accessory muscle usage noted or decreased air movement noted. Abdomen: Soft and nontender. Bowel sounds normal in all 4 quadrants. No distention noted. No organomegaly noted. No visible injury noted. Back: No CVA tenderness. Full range of motion noted. Skin: Skin warm and dry. Normal skin color. Normal skin turgor. No rashes/lesions/lacerations noted. Extremities: No lower extremity edema. Extremities exhibit normal range of motion. Extremities nontender. Neuro: Oriented X 3. Cranial nerve exam: II-XII are grossly intact No motor deficit. No sensory deficit. Reflexes normal. Course Course Course Narrative: BEAR; 34-year-old female presents to the ED presents to ED for having low blood pressures at home and presently complaining of chest pain, posterior neck pain and headache. Patient denies any recent lot of travel recent surgery. Patient is present blood pressure normal. Labs EKG ordered Reevaluation(s) Reevaluation #1: No orthostatic hypotension, VSS, no labs abnormality, unremarkable EKG, blood pressure was monitored in the ED came 15 minutes all within normal range for patient's age, patient remained asymptomatic. Will discharge the patient to follow-up with his PCP, patient was instructed to keep monitoring her blood pressure and follow-up with her PCP Time: 14:55 Medical Decision Making Differential Diagnosis Differential Diagnoses: The differential diagnosis associated with the presentation includes (Dehydration, orthostatic hypotension electrolyte derangement, severe anemia, ACS, , UTI.) Admission/Observation Consideration of admission/observation: Escalation of care including admission/observation considered Lab Data MDM Lab Attestation statement: I reviewed the patient's lab results. 01/28/25 12:19 01/28/25 12:19 Labs: Lab Results 01/28/25 01/28/25 Range/Units 12:19 12:54 WBC 6.7 (4.8-10.8) X10*3/uL RBC 4.12 L (4.20-5.50) X10*6/uL Hgb 11.9 L (12.0-16.0) g/dl Hct 37.2 (37.0-47.0) % MCV 90.3 (80.0-98.0) fL MCH 28.9 (27.0-33.0) pg MCHC 32.0 (31.0-35.0) g/dl RDW 13.3 (11.0-16.0) % Plt Count 207 (160-400) X10*3/uL MPV 11.4 (9.4-12.3) fL Immature Gran % (Auto) 0.3 (0.0-0.4) % Neut % (Auto) 62.4 (45-73) % Lymph % (Auto) 28.2 (20-40) % Campbell % (Auto) 7.3 (2-11) % Eos % (Auto) 1.2 (0-4) % Baso % (Auto) 0.6 (0-2) % Lymph # (Auto) 1.9 (1.2-4.9) X10*3/uL [place] # (Auto) 0.5 (0.1-1.2) X10*3/uL Eos # (Auto) 0.1 (0.0-0.4) X10*3/uL Baso # (Auto) 0.0 (0.0-0.2) X10*3/uL Abs Immat Gran (auto) 0.02 (0.00-0.03) X10*3/uL Absolute Neuts (auto) 4.2 (2.0-8.3) x10*3/uL Absolute Nucleated RBC 0.000 (0.0-0.012) X10*3/uL Nucleated RBC % (auto) 0.0 (0.0-0.2) /100WBC Sodium 138 (135-145) mmol/L Potassium 4.2 (3.3-5.1) mmol/L Chloride 108 (96-108) mmol/L Carbon Dioxide 25 (22-29) mmol/L Anion Gap 9 L (12-20) BUN 17 H (9-16) mg/dL Creatinine 0.84 (0.5-1.4) mg/dL Estim Creat Clear Calc 87.3 Estimated GFR > 60 Random Glucose 111 (60-115) mg/dL Calcium 8.8 (8.4-10.2) mg/dL Total Bilirubin 0.3 (0.0-1.0) mg/dL AST 28 (5-31) U/L ALT 30 (0-31) U/L Alkaline Phosphatase 66 (39-117) U/L Troponin I High Sens < 2.7 (<3.5-17.0) ng/L Total Protein 7.3 (6.5-8.0) g/dL Albumin 4.2 (3.5-5.0) g/dL Beta HCG, Quant < 2 mIU/mL Urine Color Yellow Urine Appearance Clear Urine pH 6.0 (5.0-9.0) Ur Specific [place] 1.025 (1.005-1.025) Urine Protein Negative (Neg-Trace) mg/dL Urine Glucose (UA) Negative (Negative) mg/dL Urine Ketones Negative (Negative) mg/dL Urine Blood Negative (Negative) Urine Nitrite Negative (Negative) Ur Leukocyte Esterase Negative (Negative) Urine Test NEGATIVE (NEGATIVE) Independent Interpretation I performed an independent interpretation of an: EKG (Normal sinus rhythm at 79 beats per minutes, normal axis deviation, normal intervals, no significant change from prior EKG.) and Plain X-Ray (Chest:No significant abnormality is noted involving the heart, lungs, mediastinum, bony thorax or soft tissues.) Radiology Impression Discussion of test interpretation with radiology: I have reviewed the radiologist's reading. Discharge Plan Discharge Clinical Impression: Atypical chest pain Patient Disposition: Home, Self-Care Instructions: Chest Pain (ED) Additional Instructions: Drink plenty of fluids keep yourself hydrated. Prescriptions: No Action oxycodone-acetaminophen [Endocet] 5-325 mg tablet 1 tab PO Q6H PRN (Reason: pain (scale score 7-10)) Qty: 15 0RF ibuprofen 600 mg tablet 600 mg PO Q8H PRN (Reason: fever or pain) Qty: 20 0RF Referrals: Josefina Murray MD [Primary Care Provider, Internal Medicine] Interventions: ED Discharge Assessment Last Done: 01/28/25 15:13 Discharge Date/Time: 01/28/25 15:14 Print Language: Hungarian
[2025-01-28 12:27] VITALS: BP 111/72; PULSE 85; RESP 17; O2SAT 100
[2025-01-28 12:27] LABS: MANUAL DIFF FLAG NO
--- NOTE | 2025-01-28 12:27 | PC.NURSE ---
Pt roomed changed and placed on full monitor- VSS. NSR no ectopy enrollment management manager requested for assessment.
[2025-01-28 12:33] LABS: Hematocrit 37.2 % (37.0-47.0); Hemoglobin 11.9 g/dl (12.0-16.0); Imm Gran Abs Auto 0.02 X10*3/uL (0.00-0.03); Imm Gran Pct Auto 0.3 % (0.0-0.4); Lymphocytes Absolute Auto 1.9 X10*3/uL (1.2-4.9); Mean Corpuscular HGB Conc 32.0 g/dl (31.0-35.0); Mean Corpuscular Hemoglobin 28.9 pg (27.0-33.0); Mean Corpuscular Volume 90.3 fL (80.0-98.0); NRBC Abs Auto 0.000 X10*3/uL (0.0-0.012); NRBC Pct Auto 0.0 /100WBC (0.0-0.2); Platelet Count 207 X10*3/uL (160-400); Red Blood Count 4.12 X10*6/uL (4.20-5.50); White Blood Count 6.7 X10*3/uL (4.8-10.8)
--- NOTE | 2025-01-28 12:43 | PC.NURSE ---
Biological Engineer here with myself and provider. Pt states CP only happens when she has hypotension. VSS at this time.
[2025-01-28 12:46] VITALS: BP 124/84; O2SAT 98
--- OUTSIDE RECORDS SUMMARY | 2025-01-28 12:51 | XMS_ITS | Clinical Summary ---
Author Organization [facility] Address [address] [place] [address] Care Team Providers Care Ict Managers Name Role Phone Sofi Flores PA-C Primary Care Provider [phone] Source Comments PLEASE NOTE, if this patient is a minor, it may be UNLAWFUL to discuss sensitive information that is contained in these records (such as FAMILY PLANNING, MENTAL HEALTH or SUBSTANCE ABUSE) with the minor patient's parent or other person without the patient's specific authorization.[facility] Allergies No known active allergies Medications aspirin-acetamin ophen-caffeine (EXCEDRIN MIGRAINE) 250-250-65 mg per tabletIndication s:Migraine without aura and without status migrainosus, not intractable Take 2 Tabs by mouth every 6 (six) hours as needed for pain 60 Tab 0 10/25/2016 Active Active Problems Problem Noted Date Diagnosed Date Migraine without aura and wi thout status migrainosus, not intractable 10/25/2016 Social History Tobacco Use Types Packs/Day Years Used Date Smoking Tobacco: Never Smokeless Tobacco: Never Alcohol Use Standard Drinks/Week Comments No 0 (1 standard drink = 0.6 oz pur e alcohol) Social Connections Answer Date Recorded Social Connections and Isolation 0 03/22/2019 Financial Resource Strain Answer Date R ecorded Financial Resource Strain 0 2018 Stress Answer Date Recorded Stress 0 03/22/2019 Physical Activity Answer Date Recorded Physical Activity 0 03/22/2019 Food Insecurity Answer Date Recorded Food 0 03/22/2019 Transportation Needs Answer Date Record ed Transportation 0 03/22/2019 Housing Stability Answer Date Recorded Housing 0 03/22/2019 Safety and Environment Answer Date Clint rded Safety 0 03/22/2019 Utilities Answer Date Recorded Utilities 0 03/22/2019 Employment Answer Date Recorded Employment 0 03/22/2019 Comments No Sex and Gender Information Value Date Recorded Sex Assigned at Not on file Legal Sex Female 8:07 AM PST Gender Identity Not on file Sexual Orientation Not on file Last Filed Vital Signs Vital Sign Reading Time Taken Comments Blood Pressure 120/72 10/25/2016 2:43 PM EDT Pulse 60 10/25/2016 2:43 PM EDT Temperature 36.9 C (98.4 F) 10/25/2016 2:43 PM EDT Respiratory Rate 16 10/25/2016 2:43 PM EDT Oxygen Saturation - - Inhaled Oxygen Concentration - - Weight 53.5 kg (118 lb) 10/25/2016 2:43 PM EDT Height 160 cm (5' 3 ) 10/25/2016 2:43 PM EDT Body Mass Index 20.9 10/25/2016 2:43 PM EDT Plan of Treatment Not on file Insurance [place] MEDICAID Care Teams Ict Managers Relationship Specialty Start Date End Date Sofi Flores PA-C [address] [place] [address] PCP - General 09/23/18
--- OUTSIDE RECORDS SUMMARY | 2025-01-28 12:51 | XMS_ITS | Clinical Summary ---
Author Organization [facility] Address [address] [place] [address] Phone Care Team Providers Care Instructional Developer Name Role Phone Josefina Murray MD Primary Care Provider [phone] Allergies No known active allergies Medications cyclobenzaprine (FLEXERIL) 10 mg tablet Take 1 tablet (10 mg total) by mouth 2 (two) times a day if needed for muscle spasms for up to 3 days. 6 each 08/12/2024 Active Social History Tobacco Use Types Packs/Day Years Used Date Smoking Tobacco: Never Assessed Comments Unknown Sex and Gender Information Value Date Recorded Sex Assigned at Female 08/12/2024 9:29 AM EST Legal Sex Female 12:58 AM EST Gender Identity Female 08/12/2024 9:29 AM EST Sexual Orientation Straight 08/12/2024 9: 29 AM EST Obstetrics History Last Filed Vital Signs Vital Sign Reading Time Taken Comments Blood Pressure 103/73 08/12/2024 1:59 PM EST Pulse 73 08/12/2024 1:59 PM EST Temperature 36.8 C (98.3 F) 08/12/2024 1:59 PM EST Respiratory Rate 16 08/12/2024 1:59 PM EST Oxygen Saturation 100% 08/12/2024 1:59 PM EST Inhaled Oxygen Concentration - - Weight 55.3 kg (122 lb) 08/12/2024 8:12 AM EST Height 162.6 cm (5' 4 ) 08/12/2024 8:12 AM EST Body Mass Index 20.94 08/12/2024 8:12 AM EST Plan of Treatment Health Maintenance Due Date Last Done Comments Hepatitis A Vaccines (1 of 2 - Risk 2-dose series) 2009 Cervical Cancer Screening: P ap Smear 2011 COVID-19 Vaccine (3 - 2023-2 5 season) 2024 04/19/2021, 12/24/2020 Hepatitis C Screening 05/05/2024 Social Influencers of Health Screening 05/05/2024 Hepatitis B Vaccines (2 of 3 - 19+ 3-dose series) 06/05/2024 2024 Depression Screening 06/05/2025 06/05/2024 DTaP,Tdap,and Td Vaccines (2 - Td or Tdap) 2034 2024 HIV Screening Completed 09/28/2021 Influenza Vaccine Completed 2024, 10/07/2019 HIB Vaccines Aged Out No longer eligi ble based on patient's age to complete this topic HPV Vaccines Aged Out No longer eligi ble based on patient's age to complete this topic IPV Vaccines Aged Out No longer eligi ble based on patient's age to complete this topic MMR Vaccines Aged Out No longer eligi ble based on patient's age to complete this topic Meningococcal ACWY Vaccine Aged Out N o longer eligible based on patient's age to complete this topic Meningococcal B Vaccine Aged Out No l onger eligible based on patient's age to complete this topic Pneumococcal Vaccine: Pediatrics (0 to 5 Years) and At-Risk Patients (6 to 64 Years) Aged Out No longer eligible b ased on patient's age to complete this topic RSV Immunization Patients Under 20 months Aged Out No longer eligible b ased on patient's age to complete this topic Varicella Vaccines Aged Out No longer eligible based on patient's age to complete this topic Insurance MEDICAID - [place] Care Teams Instructional Developer Relationship Specialty Start Date End Date Josefina Murray MD [address] [place] [phone] PCP - General Family Medicine 08/12/24
--- OUTSIDE RECORDS SUMMARY | 2025-01-28 12:51 | XMS_ITS | Encounter Summary ---
Author Organization [employer] Address [address] [place] [address] Care Team Providers Care Crm Solution Architect Name Role Phone Josefina Murray MD Primary Care Provider [phone] Encounter Details Date Type Department Care Team (Late st Contact Info) Description 08/13/2024 Orders Only [facility] [address] [place] [address] Provider, MD Najma Social History Tobacco Use [...] documented as of this encounter Care Teams Crm Solution Architect Relationship Specialty Start Date End Date Josefina Murray MD [address] [place] [id number] PCP - General Family Medicine 04/06/24 documented as of this encounter
[2025-01-28 13:02] LABS: Appearance Urine Clear; Glucose Urine UA Negative (Negative); PH 6.0 (5.0-9.0); Specific Gravity - Urine 1.025 (1.005-1.025)
[2025-01-28 13:02] LABS: Alanine Aminotransferase 30 U/L (0-31); Albumin Level 4.2 g/dL (3.5-5.0); Alkaline Phosphatase 66 U/L (39-117); Anion Gap 9 (12-20); Aspartate Amino Transferase 28 U/L (5-31); Blood Urea Nitrogen 17 mg/dL (9-16); Calcium 8.8 mg/dL (8.4-10.2); Carbon Dioxide 25 mmol/L (22-29); Chloride 108 mmol/L (96-108); Creatinine Clr Calc Pharmacy 87.3; Estimated Glomerular Filt Rate > 60; Potassium 4.2 mmol/L (3.3-5.1); Sodium 138 mmol/L (135-145); Total Protein 7.3 g/dL (6.5-8.0)
[2025-01-28 13:03] LABS: UPreg QC Valid YES
[2025-01-28 13:03] LABS: Troponin-I High Sensitivity < 2.7 ng/L (<3.5-17.0)
[2025-01-28 13:19] VITALS: BP 106/68; PULSE 72
[2025-01-28 13:20] VITALS: BP 112/70; BP 117/75; PULSE 73; PULSE 75
[2025-01-28 15:13] VITALS: BP 99/61; PULSE 69; RESP 17; TEMP 36.8; O2SAT 97
== END 2025-01-28 15:14 | disposition home or self-care (01) ==
PROVIDERS: Physician Assistant; Emergency Provider Emergency Medicine; PCP Student in an Organized Health Care Education/Training Program
DX: R07.89 Other chest pain (principal); M54.2 Cervicalgia; R51.9 Headache, unspecified; Z79.899 Other long term (current) drug therapy
CPT/HCPCS: 36415; 71045; 80053; 81003; 81025; 84484; 84702; 85025; 93005; 99283; 99285

== ENCOUNTER → 2025-01-28 12:08 | Outpatient (BNV) | payer MEDICAID, SELFPAY | PROVIDERS: Emergency Provider Emergency Medicine; PCP Student in an Organized Health Care Education/Training Program; Visit Provider Radiology Diagnostic Radiology | DX: R07.9 Chest pain, unspecified (principal) | CPT/HCPCS: 71045 ==

== ENCOUNTER → 2025-01-28 12:08 | Outpatient (BNV) | payer MEDICAID, SELFPAY | PROVIDERS: Emergency Provider Emergency Medicine; PCP Student in an Organized Health Care Education/Training Program; Visit Provider Internal Medicine Cardiovascular Disease | DX: R07.9 Chest pain, unspecified (principal) | CPT/HCPCS: 93010 ==